=== PATIENT | female | born 1965 | race Caucasian/White ===

== ENCOUNTER 2018-01-06 15:44 | Emergency (ER) | payer BC, SELFPAY ==
[2018-01-06 15:45] VITALS: BP 149/89; PULSE 95; RESP 16; TEMP 36.8; O2SAT 96; BMI 32.5
[2018-01-06 16:34] LABS: Absolute Lymphocyte Count 2.52 X10^3/ul (0.83-4.51); Absolute Neutrophil Count 4.9 X10^3/uL (2.0-7.7); Basophil# 0.05 X10^3/uL; Basophil% 0.6 % (0-1); Eosinophil# 0.23 X10^3/uL; Eosinophils% 2.7 % (0-5); Hematocrit 44.2 % (37-47); Hemoglobin 14.4 g/dl (12.0-15.0); Lymphocyte # 2.52 X10^3/ul (4.0); Lymphocyte % 29.2 % (19-41); Mean Corp Hgb Conc 32.6 g/gl (32-36); Mean Corpuscular Hgb 31.6 pg (27.0-32.0); Mean Corpuscular Volume 96.9 fL (81-99); Mean Platelet Vol. 9.5 fl (6.2-12.0); Monocyte# 0.89 X10^3/uL; Monocyte% 10.3 % (0-10); Neutrophil # 4.93 X10^3/uL (2.7-7.7); Platelet Count 331 K/mm3 (150-450); RBC Distribution Width CV 12.7 % (11.6-14.6); RBC Distribution Width SD 44.1 fl (35.1-43.9); Red Blood Count 4.56 M/mm3 (4.2-5.4); White Blood Count 8.6 K/mm3 (4.4-11.0)
[2018-01-06 16:36] LABS: POSITIVE COUNT NO; POSITIVE DIFFERENTIAL NO; POSITIVE MORPHOLOGY NO
[2018-01-06 16:44] LABS: Anion Gap 7 (5-15); BUN 10 mg/dL (7-18); BUN/Creat Ratio 15.2 RATIO (10-20); Calcium,Total 8.5 mg/dL (8.5-10.1); Chloride 106 mmol/L (98-107); Creatinine, Serum 0.66 mg/dL (0.55-1.02); EST Glomerular Filtration Rate 101 mL/min (>60); Est Glom Filt Rate - Afr Amer 122 mL/min (>60); Estimated Creatinine Clearance 88.06 ml/min; Glucose 113 mg/dL (74-106); Potassium 3.7 mmol/L (3.5-5.1); Sodium Level 140 mmol/L (136-145)
[2018-01-06 16:48] LABS: Pregnancy, Serum, hCG Quali. NEGATIVE Negative (0-9 Nonpreg)
[2018-01-06 16:51] LABS: Amphetamine Urine VISTA NEGATIVE (<1000 ng/mL); Barbiturate Urine VISTA NEGATIVE (< 200 ng/mL); Benzodiazepine Urine VISTA NEGATIVE (< 200 ng/mL); Cocaine Urine VISTA NEGATIVE (< 300 ng/mL); Ecstacy Urine VISTA NEGATIVE (< 500 ng/mL); Methadone Urine VISTA NEGATIVE (< 300 ng/mL); PCP Urine VISTA NEGATIVE (< 25 ng/mL); THC Urine VISTA NEGATIVE (< 50 ng/mL); Vista UDS pH Range 6
--- NOTE | 2018-01-06 17:39 | NURSING ---
ELINOR, CRISIS, HERE
--- NOTE | 2018-01-06 20:02 | DCINST.ED_ITS ---
ED Disposition - Plan for ED Patient: Disposition: Home or Assisted Living Chief Complaint: Suicidal Instructions: ED Depression Referrals: Behavioral,Health [facility] [GROUP OF PHYSICIANS] - As soon as possible
--- NOTE | 2018-01-06 20:02 | ED.VISSUMM ---
- ER Visit Summary Date of Service: 01/06/18 Chief Complaint: Suicidal ideation History of Present Illness: The patient is a 52 F reports increasing depression. She has been having her medications adjusted as an outpatient without significant improvement in her symptoms. She states that she thought about taking Klonopin to end it all. The patient later states that she does not want to actually that once the depression to and by taking Klonopin. Patient has had one prior suicide attempt in the past where she attempted hanging. She was last hospitalized 3 or 4 years ago. She follows with a psychiatrist in [place] but after much questioning patient and family it appears she was sent to [facility] to be evaluated for the behavioral health program. Physical Examination: Vital signs are unremarkable. Patient's lying in bed no acute distress. She is intermittently tearful. Head neck examination is unremarkable. Heart is regular rate and rhythm. Lung sounds are clear. Abdomen is soft nontender. Skin examination was no cutting lr, rashes or lesions. Psychiatric evaluation does reveal normal speech pattern. She does admit to suicidal thoughts but states but not to . Test Results: BC and chemistry studies are unremarkable. test negative. Tox screen normal. EtOH unremarkable. Emergency Department Course and Treatment: Katia from the counseling center spoke with the patient and . After much questioning it was weeded out that she was sent here to be started in the behavioral health program. They are not available this evening to speak with her. Referral be made from Katia. She is able to contract for safety. Treatment Plan: [] Disposition: Discharge Impression: Depression This note was generated with [employer] dictation software. It may contain incorrect words, spelling, and punctuation that were not noted in review of the chart prior to signing ED Disposition - Plan for ED Patient: Disposition: Home or Assisted Living Chief Complaint: Suicidal Instructions: ED Depression Referrals: Behavioral,Health [facility] [GROUP OF PHYSICIANS] - As soon as possible
--- NOTE | 2018-01-06 20:02 | ED.DEP ---
ED Disposition - Plan for ED Patient: Disposition: Home or Assisted Living Chief Complaint: Suicidal Instructions: ED Depression Referrals: Behavioral,Health [facility] [GROUP OF PHYSICIANS] - As soon as possible
[2018-01-06 20:13] VITALS: BP 123/82; PULSE 84; RESP 16; O2SAT 96
== END 2018-01-06 20:17 | disposition home or self-care (01) ==
PROVIDERS: Emergency Provider Emergency Medicine
DX: F32.9 Major depressive disorder, single episode, unspecified (principal); Z72.0 Tobacco use; Z79.899 Other long term (current) drug therapy
CPT/HCPCS: 36415; 80048; 80307; 80320; 84703; 85025; 99283; G0480

== ENCOUNTER 2018-01-08 09:00 | Outpatient (RCR) | payer BC, SELFPAY ==
--- NOTE | 2018-01-08 12:00 | PCM.HP.BLA ---
History and Physical Patient is a 52 year old female who presents to the [facility] with chief complaint of I had a break. History is been obtained per interview with patient, discussion with staff and review of chart. Records reviewed including the crisis assessment note by Katia Hall from 01/06/18 [facility] emergency department. Case discussed with treatment team. Chief complaint-depression, anxiety, alcohol use History of present illness Patient is a 52-year-old female who was referred to the [facility] by primary outpatient psychiatrist Dr. Porras and also by [facility] emergency department after a crisis assessment on January 06, 2018. 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 She reports that on January 04 I broke she had a panic attack followed by crying episode lasting 20-30 minutes after arriving to work in the morning. Her colleague was supportive-my cohort held me. She states that she then went numb and left work via transportation by her . Symptoms have likely been exacerbated by alcohol consumption and consequences of gambling. She reports drinking 2-3 alcoholic drinks per day over the past year and up to 12 drinks on the weekends. She been gambling over the past 2 years lost $20,000 within the past year. Her has enabled the gambling by accompanying her to the [employer]. She attributes her gambling to Abilify which she discontinued 1 month ago. She states that she also stopped gambling at the time she discontinued the Abilify. She endorses a depressed mood in which she feels self-critical and dark with and had Catrachita, decreased energy and difficulty concentrating. She has passive thoughts of stating I would not mind if I got in a car accident. She denies suicide plan or intent. Per crisis evaluation note on January 06 she reported that she wanted to overdose on Klonopin in order to make the depression and anxiety go away. She currently feels able to maintain safety. She denies access to firearms. She states that her does have a stock pile of Klonopin to which she has access. She is willing to discuss securing the Klonopin with her for safety. She denies homicidal thoughts. She reports vague perceptual disturbances of shadows or movements in the corner of her eye over the past month. She denies history consistent with a discrete episode of lani. She reports that occasionally she and her would stay up all night drinking and gambling but denies other symptoms suggestive of lani during these episodes. She has ruminative anxiety about multiple issues. She reports panic attacks in which she feels heart palpitations shortness of breath and severe anxiety. She has some obsessive-compulsive behaviors including checking and counting. She does not feel that these interfere with general functioning. She generally sleeps from 7 PM to 5 AM. She reports that overall her sleep has been stable. Her appetite is been variable. She denies eating disorder. She reports history of traumas including the of her parents, the of her 's sister, and elective at age 17, and the 2010 temporary guardianship of a 13-year-old teenage boy which she and her voluntarily gave up. Past psychiatric history Patient reports previous diagnosis of depression and anxiety. She has had 1 previous inpatient psychiatric hospitalization. In 2013 she was hospitalized at [facility] with suicidal ideation. She reports a weak attempt to hang herself of a doorknob. She participated in IOP for 8 weeks at [facility]. 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 She currently sees Dr. Porras and has a therapist Jolene. She was on Klonopin twice daily for 3 years and then was off it for 1 year. She recently restarted the Klonopin on Thursday. She reports that she was on Abilify for 2 years which she feels caused her to altman. She tried Latuda for 3 weeks but felt it was bringing me down. Substance use history Patient reports daily alcohol consumption over the past year. She drinks 12 beers on the weekend. She drinks 2-3 beers on weekdays. She stopped drinking Thursday through Thursday per Dr. Porras's request as she started Klonopin 0.5 mg twice daily on Thursday. She reports however yesterday she had 2 beers last night in spite of taking Klonopin. It is noted that her lab work from emergency department visit Thursday, January 06, is inconsistent with her provided history as urine tox screen is negative for benzodiazepines and shows alcohol level of 14. She denies history of alcohol withdrawal seizures or DTs. She started smoking 2 years ago and currently smokes one half pack of cigarettes daily. She denies illicit drug use. Past medical history Patient denies significant history. Denies seizure or head injury. EAB 1 (age 17) Review of systems No fevers chills nausea vomiting chest pain dyspnea. All other systems reviewed and negative Allergies-codeine causes vomiting Current medications Cymbalta 60 mg daily Klonopin 0.5 mg p.o. twice daily which she started on Thursday BuSpar 15 mg p.o. twice daily Propranolol 10 mg p.o. twice daily Vitamin D3 Family medical psychiatric history Father-questionable undiagnosed bipolar disorder Mother-addicted to pain medications Brother-in therapy for diagnosis unknown Nephew-depression Developmental social history Patient was born and raised in [place]. She is the youngest of 3 children. She is to older brothers. Her parents when she was 14. She lived with her mother. Her older brothers lived with her father. Her father built a multimillion dollar [employer] business. She denies abuse she states they did the best they could. She obtained a masters in education from [employer]. 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 She has been for 27 years and describes the marriage is good. Her has been on disability for 7 years for depression. They have 2 children. Oldest child age 24 is FTM (see Jolene/toshia) and lives in [facility] and is obtaining a PhD. Younger child age 21 Carina is obtaining a degree at [employer]. She and her live in [place]. Legal history none Mental status exam Vitals reviewed per nursing database and discussed with nursing. Alert and oriented. No acute distress. Ambulatory with normal gait and station. Casually dressed and groomed. Appropriate hygiene. Cooperative with interview. Good eye contact. No psychomotor agitation or retardation. Mood depressed. Affect congruent. Speech is clear and of regular rate and volume. Language fluent. Thought process organized. Associations logical. Thought content significant for ruminative anxiety and themes of depression. Passive suicidal ideation / thoughts of . No suicide plan or intent. Feels able to maintain safety. No homicidal ideation related to her detected. No evidence of psychosis related to her detected. Immediate recent and remote memory grossly intact. Attention and concentration are fair. Estimated intelligence fund of knowledge average. Judgment and insight are limited to fair. Labs and testing Lab work reviewed from [facility] emergency department January 06 2018.. BMP unremarkable. negative. Tox screen negative including negative for benzodiazepines. This is not consistent with patient's history as she was taking Klonopin as prescribed by Dr. Porras since January 04. Serum alcohol 14. Requisition provided to patient for liver function tests, TSH, serum alcohol and urine tox. Diagnosis Major depressive disorder recurrent fear F 33.2 Anxiety unspecified Rule out PTSD Alcohol use disorder moderate Nicotine use disorder Cluster B traits Plan Admit to [facility] as the structured setting is necessary to prevent decompensation and hospitalization. Risks benefits alternatives of medications discussed with patient. Patient acknowledges understanding. Continue Cymbalta 60 mg daily. Continue BuSpar 15 mg twice daily. Continue propranolol 10 mg twice daily. Discontinue Klonopin 0.5 mg twice daily as patient has continued to consume alcohol with the Klonopin. Discussed risk of alcohol withdrawal. Patient denies history of alcohol withdrawal and states that she has been able to refrain from alcohol some days without withdrawal symptoms. Start Campral 333 mg p.o. 3 times daily to be increased to 666 mg p.o. 3 times daily next week. Encouoraged participation in AA. Encouraged ongoing gambling cessation. Encouraged nicotine and smoking cessation. She agrees to discuss securing medications with her . Up with Dr. Porras and therapist Jolene. Lab requisition has been provided for lab work. Patient acknowledges understanding and is in agreement with plan. She feels able to maintain safety. She agrees to seek help or emergency care feeling unsafe to self or others.
--- NOTE | 2018-01-08 12:35 | HP.PCM_ITS ---
History and Physical Patient is a 52 year old female who presents to the [facility] with chief complaint of I had a break. History is been obtained per interview with patient, discussion with staff and review of chart. Records reviewed including the crisis assessment note by Katia Hall from 01/06/18 [facility] emergency department. Case discussed with treatment team. Chief complaint-depression, anxiety, alcohol use History of present illness Patient is a 52-year-old female who was referred to the [facility] medicine [facility] by primary outpatient psychiatrist Dr. Porras and also by [facility] emergency department after a crisis assessment on January 06, 2018. 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 She reports that on January 04 I broke she had a panic attack followed by crying episode lasting 20-30 minutes after arriving to work in the morning. Her colleague was supportive-my cohort held me. She states that she then went numb and left work via transportation by her . Symptoms have likely been exacerbated by alcohol consumption and consequences of gambling. She reports drinking 2-3 alcoholic drinks per day over the past year and up to 12 drinks on the weekends. She been gambling over the past 2 years lost $20,000 within the past year. Her has enabled the gambling by accompanying her to the [employer]. She attributes her gambling to Abilify which she discontinued 1 month ago. She states that she also stopped gambling at the time she discontinued the Abilify. She endorses a depressed mood in which she feels self-critical and dark with and had Catrachita, decreased energy and difficulty concentrating. She has passive thoughts of stating I would not mind if I got in a car accident. She denies suicide plan or intent. Per crisis evaluation note on January 06 she reported that she wanted to overdose on Klonopin in order to make the depression and anxiety go away. She currently feels able to maintain safety. She denies access to firearms. She states that her does have a stock pile of Klonopin to which she has access. She is willing to discuss securing the Klonopin with her for safety. She denies homicidal thoughts. She reports vague perceptual disturbances of shadows or movements in the corner of her eye over the past month. She denies history consistent with a discrete episode of lani. She reports that occasionally she and her would stay up all night drinking and gambling but denies other symptoms suggestive of lani during these episodes. She has ruminative anxiety about multiple issues. She reports panic attacks in which she feels heart palpitations shortness of breath and severe anxiety. She has some obsessive- compulsive behaviors including checking and counting. She does not feel that these interfere with general functioning. She generally sleeps from 7 PM to 5 AM. She reports that overall her sleep has been stable. Her appetite is been variable. She denies eating disorder. She reports history of traumas including the of her parents, the of her 's sister, and elective at age 17, and the 2010 temporary guardianship of a 13-year- old teenage boy which she and her voluntarily gave up. Past psychiatric history Patient reports previous diagnosis of depression and anxiety. She has had 1 previous inpatient psychiatric hospitalization. In 2013 she was hospitalized at [facility] with suicidal ideation. She reports a weak attempt to hang herself of a doorknob. She participated in IOP for 8 weeks at [facility]. 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 She currently sees Dr. Porras and has a therapist Jolene. She was on Klonopin twice daily for 3 years and then was off it for 1 year. She recently restarted the Klonopin on Thursday. She reports that she was on Abilify for 2 years which she feels caused her to altman. She tried Latuda for 3 weeks but felt it was bringing me down. Substance use history Patient reports daily alcohol consumption over the past year. She drinks 12 beers on the weekend. She drinks 2-3 beers on weekdays. She stopped drinking Thursday through Thursday per Dr. Porras's request as she started Klonopin 0.5 mg twice daily on Thursday. She reports however yesterday she had 2 beers last night in spite of taking Klonopin. It is noted that her lab work from emergency department visit Thursday, January 06, is inconsistent with her provided history as urine tox screen is negative for benzodiazepines and shows alcohol level of 14. She denies history of alcohol withdrawal seizures or DTs. She started smoking 2 years ago and currently smokes one half pack of cigarettes daily. She denies illicit drug use. Past medical history Patient denies significant history. Denies seizure or head injury. EAB 1 (age 17) Review of systems No fevers chills nausea vomiting chest pain dyspnea. All other systems reviewed and negative Allergies-codeine causes vomiting Current medications Cymbalta 60 mg daily Klonopin 0.5 mg p.o. twice daily which she started on Thursday BuSpar 15 mg p.o. twice daily Propranolol 10 mg p.o. twice daily Vitamin D3 Family medical psychiatric history Father-questionable undiagnosed bipolar disorder Mother-addicted to pain medications Brother-in therapy for diagnosis unknown Nephew-depression Developmental social history Patient was born and raised in [place]. She is the youngest of 3 children. She is to older brothers. Her parents when she was 14. She lived with her mother. Her older brothers lived with her father. Her father built a multimillion dollar [employer] business. She denies abuse she states they did the best they could. She obtained a masters in education from [employer]. 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 She has been for 27 years and describes the marriage is good. Her has been on disability for 7 years for depression. They have 2 children. Oldest child age 24 is FTM (see Jolene/toshia) and lives in [facility] and is obtaining a PhD. Younger child age 21 Carina is obtaining a degree at [employer]. She and her live in [place]. Legal history none Mental status exam Vitals reviewed per nursing database and discussed with nursing. Alert and oriented. No acute distress. Ambulatory with normal gait and station. Casually dressed and groomed. Appropriate hygiene. Cooperative with interview. Good eye contact. No psychomotor agitation or retardation. Mood depressed. Affect congruent. Speech is clear and of regular rate and volume. Language fluent. Thought process organized. Associations logical. Thought content significant for ruminative anxiety and themes of depression. Passive suicidal ideation / thoughts of . No suicide plan or intent. Feels able to maintain safety. No homicidal ideation related to her detected. No evidence of psychosis related to her detected. Immediate recent and remote memory grossly intact. Attention and concentration are fair. Estimated intelligence fund of knowledge average. Judgment and insight are limited to fair. Labs and testing Lab work reviewed from [facility] emergency department January 06 2018.. BMP unremarkable. negative. Tox screen negative including negative for benzodiazepines. This is not consistent with patient's history as she was taking Klonopin as prescribed by Dr. Porras since January 04. Serum alcohol 14. Requisition provided to patient for liver function tests, TSH, serum alcohol and urine tox. Diagnosis Major depressive disorder recurrent fear F 33.2 Anxiety unspecified Rule out PTSD Alcohol use disorder moderate Nicotine use disorder Cluster B traits Plan Admit to [facility] as the structured setting is necessary to prevent decompensation and hospitalization. Risks benefits alternatives of medications discussed with patient. Patient acknowledges understanding. Continue Cymbalta 60 mg daily. Continue BuSpar 15 mg twice daily. Continue propranolol 10 mg twice daily. Discontinue Klonopin 0.5 mg twice daily as patient has continued to consume alcohol with the Klonopin. Discussed risk of alcohol withdrawal. Patient denies history of alcohol withdrawal and states that she has been able to refrain from alcohol some days without withdrawal symptoms. Start Campral 333 mg p.o. 3 times daily to be increased to 666 mg p.o. 3 times daily next week. Encouoraged participation in AA. Encouraged ongoing gambling cessation. Encouraged nicotine and smoking cessation. She agrees to discuss securing medications with her . Up with Dr. Porras and therapist Jolene. Lab requisition has been provided for lab work. Patient acknowledges understanding and is in agreement with plan. She feels able to maintain safety. She agrees to seek help or emergency care feeling unsafe to self or others.
--- NOTE | 2018-01-08 12:36 | BH.DR.ITP ---
Initial Treatment Plan - Patient Information Visit Information: ADMISSION DATE: EXPECTED LOS: 4-6 weeks Diagnoses:: Major depressive disorder F 33.2 - Problems/Symptoms Problem #1:: Depression Symptom:: Sad mood, anhedonia, decreased energy, passive suicidal ideation, biologic disruption of appetite Problem #2:: Anxiety Symptom:: Rumination, panic Problem #3:: Alcohol use
--- NOTE | 2018-01-08 12:38 | PCM.PN.BLA ---
Progress Note Physical exam: Vital signs per nursing database. Patient is alert and oriented in no acute distress. Head is normocephalic and atraumatic. Extraocular movements are intact. Mucous memories are moist. Throat without erythema. Neck supple. Full range of motion. Heart has a regular rate and rhythm. Lungs clear. Breath sounds equal. Abdomen with bowel sounds present. Spontaneous motion of extremities. Distal pulses intact. Ambulatory with normal gait and station.
--- NOTE | 2018-01-08 14:52 | BH.NA_ITS ---
Physical Data - Vital Signs Pulse Rate: 70 Respiratory Rate: 14 Blood Pressure: 109/74 - Height/Weight Height: 1.63 m Weight:: 86.183 kg Weight in Pounds: 190.0 lbs Current Medication Compliance - Medication Compliance Do you take your medication as prescribed?: Yes Do you need assistance with taking medication?: No Have you had side effects from medication?: Yes - Abilify-wt gain and increased impulsiveness, Latuda-exacerbated depression Nutritional History - Appetite Nutritional Instructions:: If client shows signs of a swallowing problem, weight change of 10 pounds or more in the last month, or is on a diabetic diet, the physician will review and request a dietitian consult, as appropriate. All unintentional weight loss will be referred to the physician for decision on need for dietitian consult. Describe your appetite:: Fair Have you noticed a change in your eating habits lately?: Yes - appetite has decreased as depressive symptoms have increased Additional nutritional information:: >1 serving of caffiene daily Functional Assessment - Sleep Pattern Describe any problems with sleeping: Difficulty staying asleep r/t rumination. - Activities Motor Activity:: Functional Sensory/Communication Assess - Hearing Problems Do you have any hearing problems?: Adequate - Communication Problems Do you have difficulty understanding what people are saying?: No Do you have trouble putting your thoughts into words or expressing what you want to say?: No Do people ever have trouble understanding what you say?: No What is your primary language?: Faroese Learning Assessment - Education What is your level of education?: Master Degree - Learning Barriers Learning Barriers:: Ready to learn Medical Problems/History - Pain Assessment Do you have acute or chronic pain?: No - Female Reproductive Do you think you may be ?: No Number of pregnancies:: 3 Number of children:: 2 Have you reached menopause?: No Do you have any history of breast disease?: No :: 1 - EAB Mental Status Summary - Mental Status Significant Findings/Observations on Appearance and Mood:: Client is A&Ox4 and cooperative with interview. She has appropriate hygiene and grooming, and is casuallly dressed. She makes good eye contact. Speech is clear and of normal rate and volume. Mild depression and anxiety, affect is mood congruent. Normal process and logical associations. No symptoms of delusions. Client denies hallucinations and HI. She denies SI, but does note that she has passive thoughts of . Suicide Assessment - Suicidal Ideation Are you currently or have you been suicidal in the past?: Yes Suicidal Intentional Rating Scale (SIRS): Suicidal thoughts (past) Physician Notification: If Active suicidal thoughts/Will not contract for safety is checked, contact physician and document in the Physician Notification section below. Past Psychiatric History - MH Treatment Hx Past Psychiatric Medications:: Cymbalta, propranolol, buspar Fall Risk Assessment - Age Age: Less than 60 - Mental Status Mental Status: Willing & able to ask for assistance when needed - Physical Status Physical Status: No problems - Impairments Impairments: None - Elimination Elimination: Continent AND independent - Gait or Balance Gait or Balance: Walks independently - Hx of Falls History of falls in the past 6 months: No known history - Medications/Substances Psychotropics:: Antidepressants Medications/substances used within the past 24 hours or ordered to administer: 1 -2 of the medications/substances listed above - Total Score Total Points:: 1 Physician Notification - Physician Notification Physician Notified: Elizabeth Lanier Method of Notification: Face to Face Comments: treatment plan discussion RN Summary of Impressions - Impressions Recommendations: Include psychiatric and medical issues, treatment planning recommendations, and discharge planning needs. - Level of Care How do the client's current symptoms and functional deficits support need for this level of care?: Client denies current or recent SI, noting the cinder pit worker mistook her stating that she wanted to take several Klonopin to 'dull her symptoms' as SI, when she did not have intention to harm herself. She recognizes that her depression and anxiety have been increasingly poorly controlled for several weeks. She has been unable to work and has been using alcohol to self-medicate daily, drinks much more on weekends. IOP will help encourage gains while preventing further decompensation.
--- NOTE | 2018-01-08 14:54 | BH.SGPN ---
Service Group Progress Note - Session Psychotherapy Session #2 Date Open:: 01/08/18 - 8 group members Time Started:: 10:27 Time Stopped:: 11:20 Targeted Problem #:: 1 Type of Group:: Illness Management Goal of Group:: To increase understanding of resilience and identify the factors that contribute to building resilience. Client Response/Progress/Benefit:: Client responded well to session, active participant. Client connected with the quote sharing, if we refuse to change we will break. Client defined resiliency has bouncing back after experiencing hardships. Client helped the group identify factors of resiliency such as basic needs, live to learn, and self-awareness. Client shared living to learn is important because it can help her move past mistakes and gain new knowledge. Client appeared to connect with the dimensions of resiliency and emotional agility, sharing, it helps me understand myself more. Client seemed to benefit from learning about the factors that contribute to resiliency. Client's first day in PHP, to continue PHP to promote mood stability and prevent decompensation. Eye Contact:: Good Motor Activity:: Appropriate Appearance:: Neat Speech:: Appropriate Mood:: Anxious Affect:: Constricted Thoughts:: Linear, No evidence of hallucinations/delusions noted Staff Interventions:: Therapist led group in an activity that would induce a chaotic environment and used the activity as a tool in discussing the various stressors people are faced with each day. Therapist facilitated group discussion about resilience and explained the factors of building resilience. Therapist led discussion about factors that contribute to resilience. Therapist provided support by using active listening and providing feedback.
--- NOTE | 2018-01-08 16:37 | BH.MDN ---
Multi-Disciplinary Note - Note 45-min Individual Time Started:: 12:27 Date: 01/08/18 Purpose of session/treatment goals addressed:: The purpose of this session was to begin building rapport, as well as assess Client perception of current stressors, symptoms, supports, and means for coping. Another goal was to work with client to assess motivation for change regarding current drinking behaviors as well as begin to establish treatment goals. Eye Contact:: Good Motor Activity:: Appropriate Appearance:: Casual Speech:: Appropriate Mood:: Anxious Affect:: Congruent Thoughts:: Linear, Logical, No evidence of hallucinations/delusions noted Staff Interventions:: Therapist asked open-ended and furthering questions to gather information regarding client current symptoms, stressors, and identified supports. Used active and reflective listening, as well as empathic responses to provide support and normalize Client concerns. Discussed with Client past means for coping and provided psychoeducation regarding how maladaptive coping mechanisms are formed. Utilized HI techniques to determine Client readiness and motivation to change. Began to work with Client on identifying treatment goals. Client Response:: Client open to meeting with this therapist and responded well to content discussed throughout session. She shared feeling somewhat overwhelmed by the amount of information she took in during group as well as her time meeting with the program psychiatrist. She indicated feeling reassured by the support of the staff and fellow clients who reminded her that the first day of something new is often the hardest and most overwhelming because we aren't sure what to expect. Client discussed the cirstumstances leading up to admission and indicated I had a break down at work and they had to take me to the emergency department. 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 Client identified state requirements, parent expectations, and more intense student behavioral problems as biggest stress related concerns. CLient reflected back that she feels she had not been contributing to her share of the work for some time now and found she has been relying increasingly on the other teacher in the classroom. Client further noted previously struggling to manage occupational stress which resulted in hospitalization and client taking time off from work approximately 3 years ago. When asked how she had coped and returned to work at that time Client shared I didn't, I guess I just pushed it all down and pretended that it wasn't bothering me. She went on to add that after meeting with the program nurse and psychiatrist she has become aware of the extent that she has been using alcohol and gambling as her primary coping skills for that past few years. Client revealed that she has been drinking 2-3 drinks daily, often juma mathews and carolin. She shared doing so as a means of relaxing and not having to think about current stressors. Client denies that alcohol use has impeded her ability to function and shared that usually her nighttime drinking causes her to pass out and sleep until work the next day but has not impacted her during working hours. CLient shared not realizing the extent of the drinking as she has been in an environment where this behavior is often normalized. Client went on to discuss that she had also been gambling for the past few years since beginning an Abilify trial, which she believes is the primary cause of the behavior. Client shared that her gambling has resulted in significant debt but that she and her have arranged a payment plan to pay off current debts. CLient indicates her is her largest support. She shared a strong desire to focus primarily on stress management and replacing her unhealthy coping with healthier skills. CLient reviewed with therapist strategies for maintaining sobriety over the weekend and indicates plans to do so. Risks/Concerns:: Client denies any active Suicidal Ideation, plan, or intent as of this date, 01/08/18. She identifies wanting to be able to function normally and no longer struggling with managing her overwhelming stress or feeling like a burden as main sources of motivation. Client indicates plans to maintain sobiety and potentially return to work following completion of IOP program, indicating future orientation. Client indicates an ability to maintain safety of self and others at this time and is aware of local crisis resources available. Client has a history of alcohol misuse and gambling behaviors; however, indicates a willingness to maintain sobriety and address unhealthy means of coping throughout program admission. Client reports drinking dx and has been rx Campral 333 mg p.o. 3 times daily to be increased to 666 mg p.o. 3 times daily to aid with maintaining sobriety. Progress Toward Goals/Plan:: Client first day in IOP program, therefore minimal progress able to be made. Client expressed adjusting well to treatment setting and appeared to be comfortable. Client further disclosed that although this first day in to program had been a lot to take in emotionally, she felt as though she had been able to gain important insights into how her current thoughts and behaviors may be negatively impacting various areas of her life. CLient shared expressed to improve her ability to manage mental health symptoms in order to decrease urges to utilize unhealthy means of coping. Client additionally open to addressing addiction behaviors including alcohol and gambling. Recommended continued PHP to further establish tx goals, continue learning strategies to maintain sobriety, improve emotion regulation, prevent decompensation, and increase use of healthy coping mechanisms. Time Stopped:: 13:16
--- NOTE | 2018-01-11 13:27 | BH.SGPN ---
Service Group Progress Note - Session Psychotherapy Session #2 Date Open:: 01/11/18 - 6 group members Time Started:: 10:18 Time Stopped:: 11:14 Targeted Problem #:: 1 Type of Group:: Illness Management Goal of Group:: To increase understanding of what stress is, identify current life stressors, and connect impact stressors have on mental health. Client Response/Progress/Benefit:: Client responded well to session, engaged in discussion providing good insight. Client appeared to connect with the quote stating, I don?t even know how negative I?m thinking until I feel stuck in the mud. Client shared stress can impact all areas including physical, mental, and emotional. Client appeared to connect with the fact that not all stress is bad, but chronic stress can create numerous issues. Client identified her personal stressors as: school, emotional management, family, and future. Client stated currently her stress is managed through use of self-care and thought challenge. Client reported when her stress is overflowing? she gets angry, turns to alcohol, has panic attacks, and gets somatic symptoms. Client appeared to benefit from gaining awareness of personal stressors, stating ?it?s all starting to make sense, I was in survival mode for so long.? Client to continue PHP to prevent decompensation and increase mood stability. Eye Contact:: Good Motor Activity:: Appropriate Appearance:: Neat Speech:: Appropriate Mood:: Euthymic Affect:: Congruent Thoughts:: Linear, No evidence of hallucinations/delusions noted Staff Interventions:: Therapist facilitated discussion about stress. Therapist facilitated an activity in which group members were asked to identify various stressors they have in their life currently. Therapist instructed group members to indicate if certain stressors were larger than others. Therapist led processing of each member?s stress jar and helped them connect impact the stress has on their mental health. Psychotherapy Session #3 Date Open:: 01/11/18 - 6 group members Time Started:: 11:20 Time Stopped:: 12:16 Targeted Problem #:: 1 Type of Group:: Functional Skills Development Goal of Group:: To identify what stressors clients have control over and what stressors have no control over. Another goal was to increase repertoire of healthy strategies to help manage stress. Client Response/Progress/Benefit:: Client responded well to session, active participant. Client helped the group accomplish an activity the induced stress and promote the use of emotional regulation. Client stated the activity helped her gain awareness ?we can?t tackle all our stressors at once.? Client discussed the importance of putting energy into reducing stressors in her control rather than ruminating of things out of her control. Client's in control stressors included managing emotions and part of her future. Client identified strategies for stress management such as expressing needs to supports, setting small goals, and focusing on one stressor at a time. Client shared the group helped her realize ?I can do this in a healthy way, without drinking and smoking!? Client appeared to benefit from increasing her repertoire of stressing reducing coping skills. Progress noted in client's increased awareness, but can continue to benefit from staying sober. Eye Contact:: Good Motor Activity:: Appropriate Appearance:: Neat Speech:: Appropriate Mood:: Euthymic Affect:: Congruent Thoughts:: Linear, No evidence of hallucinations/delusions noted Staff Interventions:: Therapist facilitated discussion about control versus no control and helped group members connect the concept to stressors. Therapist led discussion about importance of putting forth more energy on those stressors they can control. Therapist facilitated brainstorming of strategies to help manage stress level. Therapist provided support by using active listening and providing feedback.
--- NOTE | 2018-01-11 16:39 | BH.MDN_ITS ---
Multi-Disciplinary Note - Note 45-min Individual Time Started:: 12:30 Date: 01/11/18 Purpose of session/treatment goals addressed:: The purpose of this session was to check-in with Client regarding symptoms and stressors over weekend as well as progress in abstaining from alcohol use. Another goal was to review Client identified motivations for sobriety as well as explore with client potential thoughts or justifications contributing to unhealthy coping behaviors. Introduced and provided homework for client to begin applying thought challenging strategies discussed. Eye Contact:: Good Motor Activity:: Appropriate Appearance:: Casual Speech:: Appropriate Mood:: Euthymic, Anxious Affect:: Full Thoughts:: Linear, Logical, No evidence of hallucinations/delusions noted Staff Interventions:: Therapist used active listening and open-ended questions to explore client's thoughts and adjustment to group setting following completion of her first two days. Elicited information regarding ability to maintain sobriety over weekend, current stressors and symptoms. Therapist used [place] techniques to determine CLient motivations to maintain sobriety. Provided psychoeducation on alcohol use as a negative coping skill and common justifications used to override motivations not to drink. Worked with client to identify her personal justifications and ways to challenge these justifications. Provided client with thought challenge homework to review in next session. Client Response:: Client receptive of meeting for individual session, engaged throughout. She shared struggling with high levels of anxiety over the weekend associated with refraining from alcohol consumption. Client indicates successfully maintaining sobriety; however, found her thoughts frequently returning to reasons why she should be able to drink and struggled to challenge the thoughts as they occurred. Client went on to identify her as a major support for her as he was understanding and encouraged client to achieve her goal. Client discussed ongoing guilt and shame related to the impact her anxiety and use of drinking as a primary coping skill. She discussed feeling as though she has failed herself and her coworkers by taking the remainder of the academic year off. Client struggles with challenging use of negative or self- deprecating talk and appeared to benefit from walking through the evidence against beliefs she is a failure. Client responded well to discussion reviewing her motivations for maintaining sobriety as well as the thoughts and justifications for drinking that may lead client to overlook motivations. Client shared that being a good and mother is her largest motivation, as well as reconnecting with a side of herself she is proud of. Therapist introduced and worked with client to complete an Addiction ?Shit List? is which client is tasked with identifying the justifications she gives herself and consequences on her life. Client and therapist walked through challenging one of the identity justifications and client agreeable to apply thought challenging strategies for the remainder as homework to be reviewed in next session. Risks/Concerns:: Client denies suicidal ideation, plan, or intent as of this date, 01/11/18. She is aware of crisis resources and willing to utilize should she feel unable to maintain safety. CLient is 3 days sober and has a history of alcohol abuse. She reports strong motivation to maintain sobriety and indicates her has been a strong support in client sobriety. She has reviewed withdrawal risks/concerns with program psychiatrist and is aware of dangers of alcohol consumption with current psychiatric medications. Progress Toward Goals/Plan:: Minimal progress to report as this is client's second day in IOP program. CLient appears to be making progress in her willingness to open up to the group and reports high levels of motivation to engage in treatment process. Client current recommendation in to maintain current treatment goals with specific focus on continued promotion of sobriety, the relationship between client use of alcohol and gambling as primary coping skills and current mental health symptoms, develop alternative coping strategies , and maintain stability. Time Stopped:: 13:09
--- NOTE | 2018-01-11 16:42 | BH.MTP_ITS ---
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 Anxiety unspecified. Rule out PTSD. Alcohol use disorder moderate. Nicotine use disorder. Cluster B traits Diagnosis Code(s):: F 33.2 - Estimated LOS Estimated LOS (in weeks):: 1 Problem/Goal #1 - Problem/Goal #1 Stated Goal:: Maintain sobriety and increase awareness of the role that emotions play in substance abuse Description of Barriers: Client has a hx of unhealthy means for coping including drinking, smpking, and gambling behaviors which has caused client some financial distress. Client dealing with various psychosocial stressors including recently leaving her job due to increased panic attacks while at work. She additionally discussed difficulties in managing stress/anxiety, increased rumination and negative thinking, increased alcohol use prior to admission, few supports outside of family Functional Impact: Client reports increased occupational stress, ruminating thoughts, difficulties managing emotions, and unhealthy coping via increased drinking behaviors which have impacted ability to function at baseline. She shared increased difficulties in completing duties of her job due to increase stress and anxiety, ultimately resulted in client experiencing an anxiety attack at work. She shared decreased enjoyment in activities previously enjoyed and increased irritability as well. Client shared increased alcohol consumption as a result of stress and reports relying on alcohol as her main source of stress relief. She denies any substantial impact on daily functioning. Goal Relevant Strengths/Supports: Client is intelligent, caring, empathic, and able to relate well with others, she appears motivated to change and willing to try new things in order to improve ability to reduce drinking, cope with urges and mental health symptoms, as well as learn strategies to better regulate emotions. She reports her family is very supportive and are her biggest sources of motivation. - Objectives Objective #1 Stated Objective: List 10 negative consequences resulting from substance use, 10 motivators to remain sober, and 10 stinking thinking thoughts that could rationalize use. Through group and individual will be able to identify emotions that contributed to use and 2 strategies to implement. Interventions: Provide education on dual diagnosis, cycle of addiction, and self -medication with substances. Discharge Criteria: Pt will have listed 10 negative consequences resulting from substance use, 10 motivators to remain sober, and 10 stinking thinking thoughts that could rationalize use. Also be able to identify emotions that contributed to use and 2 strategies to implement. Target Date: 01/18/18 Review Date: 01/18/18 Problem/Goal #2 - Problem/Goal #2 Stated Goal:: Reduce overall frequency, intensity, and duration of the ruminating thoughts that cause increased anxiety and panic so that daily functioning is not impaired. Description of Barriers: Client has a hx of unhealthy means for coping including drinking, smpking, and gambling behaviors which has caused client some financial distress. Client dealing with various psychosocial stressors including recently leaving her job due to increased panic attacks while at work. She additionally discussed difficulties in managing stress/anxiety, increased rumination and negative thinking, increased alcohol use prior to admission, few supports outside of family. Functional Impact: Client reports increased occupational stress, ruminating thoughts, difficulties managing emotions, and unhealthy coping via increased drinking behaviors which have impacted ability to function at baseline. She shared increased difficulties in completing duties of her job due to increase stress and anxiety, ultimately resulted in client experiencing an anxiety attack at work. She shared decreased enjoyment in activities previously enjoyed and increased irritability as well. Client shared increased alcohol consumption as a result of stress and reports relying on alcohol as her main source of stress relief. She denies any substantial impact on daily functioning. Goal Relevant Strengths/Supports: Client is intelligent, caring, empathic, and able to relate well with others, she appears motivated to change and willing to try new things in order to improve ability to reduce drinking, cope with urges and mental health symptoms, as well as learn strategies to better regulate emotions. She reports her family is very supportive and are her biggest sources of motivation. - Objectives Objective #1 Stated Objective: Client will identify 2-3 anxiety triggers and 2 coping skills to use when feeling anxious. Interventions: Therapist will encourage client to use self-awareness strategies and assist client in developing coping strategies to manage ruminating thoughts. Discharge Criteria: Client will have met this goal when can identify at least 2 triggers and 2 ways to cope with anxieties. Target Date: 01/18/18 Review Date: 01/18/18 Problem/Goal #3 - Problem/Goal #3 Stated Goal:: Client will reduce depressive symptoms, feelings of worthlessness , and anhedonia due to Major Depressive Disorder through Partial Hospitalization Program. Description of Barriers: Client has a hx of unhealthy means for coping including drinking, smpking, and gambling behaviors which has caused client some financial distress. Client dealing with various psychosocial stressors including recently leaving her job due to increased panic attacks while at work. She additionally discussed difficulties in managing stress/anxiety, increased rumination and negative thinking, increased alcohol use prior to admission, few supports outside of family. Functional Impact: Client reports increased occupational stress, ruminating thoughts, difficulties managing emotions, and unhealthy coping via increased drinking behaviors which have impacted ability to function at baseline. She shared increased difficulties in completing duties of her job due to increase stress and anxiety, ultimately resulted in client experiencing an anxiety attack at work. She shared decreased enjoyment in activities previously enjoyed and increased irritability as well. Client shared increased alcohol consumption as a result of stress and reports relying on alcohol as her main source of stress relief. She denies any substantial impact on daily functioning. Goal Relevant Strengths/Supports: Client is intelligent, caring, empathic, and able to relate well with others, she appears motivated to change and willing to try new things in order to improve ability to reduce drinking, cope with urges and mental health symptoms, as well as learn strategies to better regulate emotions. She reports her family is very supportive and are her biggest sources of motivation. - Objectives Objective #1 Stated Objective: Identify at least 2-3 negative self-talk messages used to reinforce feelings of worthlessness and replace thoughts with positive messages. Interventions: Therapist will help client identify distorted, negative beliefs about self and replace with more realistic, affirmative messages. Discharge Criteria: Client will have achieved this goal when can verbalize at least 2 negative self-talk messages and effectively replace those thoughts with affirmative messages. Target Date: 01/18/18 Review Date: 01/18/18
--- NOTE | 2018-01-12 10:54 | BH.SGPN ---
Service Group Progress Note - Session Psychotherapy Session #1 Date Open:: 01/12/18 - 6 group members Time Started:: 09:05 Time Stopped:: 10:15 Targeted Problem #:: 1 Type of Group:: Process Goal of Group:: The goal of today's group was to check-in with client's mood, stressors, and positives, and introduce topic for the day. Client Response/Progress/Benefit:: Client responded well to session, quiet, but participating when prompted. 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 Client shared it was eye-opening, I didn't realize how full my stress jar was, I was constantly in fight or flight. Client reports feeling nervous and hopeful today after sharing her work and insurance stressors with her . Client stated although she still experiences some anxiety, her was supportive and helped client think of solutions. Client shared she is five days sober and reports plan to continue sobriety through a 14-day cleanse challenge client and her IOP therapist developed. Client appeared to benefit from receiving supportive statements and identifying positive ways she is contributing to her treatment process. Client to continue PHP to promote mood stability, sobriety, and healthy coping skills. Eye Contact:: Fair Motor Activity:: Appropriate Appearance:: Neat Speech:: Appropriate Mood:: Euthymic Affect:: Constricted Thoughts:: Linear, No evidence of hallucinations/delusions noted Staff Interventions:: Therapist used open-ended questions to elicit information about client's current stressors and mood state. Therapist was supportive by using active listening and reflection.
--- NOTE | 2018-01-12 13:27 | BH.MDN ---
Multi-Disciplinary Note - Note 45-min Individual Time Started:: 12:30 Date: 01/12/18 Purpose of session/treatment goals addressed:: The purpose of this session was to review CLient homework on challenging thoughts justifying drinking behaviors and process each. Another purpose was to discuss consequences of drinking on her mental and physical health and well-being. Eye Contact:: Good Motor Activity:: Appropriate Appearance:: Neat Speech:: Appropriate Mood:: Anxious Affect:: Full, Congruent Thoughts:: Linear, Logical, No evidence of hallucinations/delusions noted Staff Interventions:: Therapist used open-ended questions to gather information on current symptoms, thoughts, and stressors. Reviewed with Client thought challenging homework and used active listening to gather information regarding client difficulties with challenging justifications for drinking behaviors. Aided client in challenging and identifying alternative responses for each justification used. Provided psychoeducation on mental and physical impacts of alcohol consumption. Facilitated conversation surrounding sober resources and alternative coping mechanisms. Client Response:: Client receptive of meeting, engaged in discussion and positive participant throughout. She shared experiencing significant difficulties with the homework from previous session. Client went on to discuss that when trying to challenge and replace the thoughts justifying her drinking behavior, she found herself believing the justifications. Client provided the example of believing she deserves to reward herself and relax after a long day and that it is normal because all of her coworkers drink as well. Receptive of working with this therapist to challenge and replace each thought, processing factors contributing to each. Able to reframe thought of I deserve to reward myself and relax with I can find other ways to relax and reward myself besides drinking. Client indicated that she could get an iced coffee or go for a drive with her . She disclosed that since maintaining sobriety she has been feeling physically better and inquired as to if the two are connected. Therapist reviewed the common impacts that drinking has on physical and mental health. Client expressed not knowing how significantly her alcohol use had been effecting her. She indicated identifying changes in weight, energy, memory, and irritability levels. Client additionally expressed connecting with the relationship between alcohol and increased levels of depression and anxiety. She expressed that she had begun to realize that all this was doing was numbing her to her stressors and causing the rumination to be worse later. Therapist and Client discussed the importance of having healthy supports she can go to where alcohol is not a temptation and people she feels comfortable turning to when feeling tempted to drink. Client encouraged to identify the sober resources she has at home and through social supports as homework. Risks/Concerns:: Client denies suicidal or homicidal ideation, plan, and intent as of 01/12/18. Client is future oriented and aware of crisis resources available. She expresses her family as motivations to continue making strides in learning to manage mental health sx and maintain sobriety. Continues to report successfully maintaining sobriety since 01/08/18. Progress Toward Goals/Plan:: Client is making steady progress towards treatment goals. She is doing well to internalize treatment concepts and is actively applying skills learned. CLient has limited insight into metal health as she has never had mental health treatment before, however is able to grasp interventions once they are explained and client is walked through them. Client displays difficulties in challenging her thoughts and reports high expectations of self which cause shame and guilt. This will [id number] to be explored and address with client. CLient has successfully been able to maitain sobriety since admissio to IOP and is an active and well engaged group participant. Recommended continued IOP to prevent decompensation, continue to gains in treatent, and decrease symptoms of anxiety and depression. Time Stopped:: 13:15
--- NOTE | 2018-01-13 13:27 | BH.MDN_ITS ---
Multi-Disciplinary Note - Note 45-min Individual Time Started:: 12:30 Date: 01/12/18 Purpose of session/treatment goals addressed:: The purpose of this session was to review CLient homework on challenging thoughts justifying drinking behaviors and process each. Another purpose was to discuss consequences of drinking on her mental and physical health and well-being. Eye Contact:: Good Motor Activity:: Appropriate Appearance:: Neat Speech:: Appropriate Mood:: Anxious Affect:: Full, Congruent Thoughts:: Linear, Logical, No evidence of hallucinations/delusions noted Staff Interventions:: Therapist used open-ended questions to gather information on current symptoms, thoughts, and stressors. Reviewed with Client thought challenging homework and used active listening to gather information regarding client difficulties with challenging justifications for drinking behaviors. Aided client in challenging and identifying alternative responses for each justification used. Provided psychoeducation on mental and physical impacts of alcohol consumption. Facilitated conversation surrounding sober resources and alternative coping mechanisms. Client Response:: Client receptive of meeting, engaged in discussion and positive participant throughout. She shared experiencing significant difficulties with the homework from previous session. Client went on to discuss that when trying to challenge and replace the thoughts justifying her drinking behavior, she found herself believing the justifications. Client provided the example of believing she deserves to reward herself and relax after a long day and that it is normal because all of her coworkers drink as well. Receptive of working with this therapist to challenge and replace each thought, processing factors contributing to each. Able to reframe thought of ?I deserve to reward myself and relax? with ?I can find other ways to relax and reward myself besides drinking?. Client indicated that she could get an iced coffee or go for a drive with her . She disclosed that since maintaining sobriety she has been feeling physically better and inquired as to if the two are connected. Therapist reviewed the common impacts that drinking has on physical and mental health. Client expressed not knowing how significantly her alcohol use had been effecting her. She indicated identifying changes in weight, energy, memory, and irritability levels. Client additionally expressed connecting with the relationship between alcohol and increased levels of depression and anxiety. She expressed that she had begun to realize that all this was doing was numbing her to her stressors and causing the rumination to be worse later. Therapist and Client discussed the importance of having healthy supports she can go to where alcohol is not a temptation and people she feels comfortable turning to when feeling tempted to drink. Client encouraged to identify the sober resources she has at home and through social supports as homework. Risks/Concerns:: Client denies suicidal or homicidal ideation, plan, and intent as of 01/12/18. Client is future oriented and aware of crisis resources available. She expresses her family as motivations to continue making strides in learning to manage mental health sx and maintain sobriety. Continues to report successfully maintaining sobriety since 01/08/18. Progress Toward Goals/Plan:: Client is making steady progress towards treatment goals. She is doing well to internalize treatment concepts and is actively applying skills learned. CLient has limited insight into metal health as she has never had mental health treatment before, however is able to grasp interventions once they are explained and client is walked through them. Client displays difficulties in challenging her thoughts and reports high expectations of self which cause shame and guilt. This will [id number] to be explored and address with client. CLient has successfully been able to maitain sobriety since admissio to IOP and is an active and well engaged group participant. Recommended continued IOP to prevent decompensation, continue to gains in treatent, and decrease symptoms of anxiety and depression. Time Stopped:: 13:15
--- NOTE | 2018-01-13 13:28 | BH.MDN_ITS ---
Multi-Disciplinary Note - Note 45-min Individual Time Started:: 12:30 Date: 01/13/18 Purpose of session/treatment goals addressed:: The purpose of this session was to review CLient homework on identifying sober resources and asking supports if they had recognized signs client mental health was worsening. Another purpose was to discuss warning signs and triggers for mental health and aid Client in identifying masood signs/triggers specific to her. Eye Contact:: Good Appearance:: Neat Speech:: Appropriate Mood:: Anxious, Dysthymic Affect:: Congruent Thoughts:: Linear, Logical, No evidence of hallucinations/delusions noted Staff Interventions:: Therapist asked open-ended and furthering questions to gather Client current symptoms, stressors, and treatment goal progress. Provided psychoeducation regarding what warning signs and triggers are. Assisted Client in identifying symptoms and warning signs personally experienced. Worked with client to discuss the importance of awareness of individual warning signs and triggers so that she may more effectively manage mental health and prevent relapse behaviors. Client Response:: Client receptive of meeting for session and actively engaged in session throughout. She discussed speaking with her , Emil, about the previous session challenge of identifying sober supports. CLient indicated that they had been surprised to discover that neither of them could think of any. Client expressed that this had been a much more difficult task that originally thought but was glad to know they she may need to work on developing a sober support system. 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 CLient shared that it had helped to be able to identify specific people within her field who are able to manage the stress of the job in healthy ways. Client went on to discuss conversations with her and daughter about whether they had noticed any changes in client that had alerted them that her mental health had been suffering. Client shared that they had told her they did notice changes in her behavior and attitude. SHe stated that her had mentioned client's increased drinking behaviors and the need to have a cocktail immediately following work was a huge red flag for him. She discussed that both he and her daughter had noticed client isolating and avoiding phone calls, as well as increased irritability. CLient shared feeling conflicted about this as she wishes they had spoke up at the time but that she also understands that they may have not known what to say and that she may not have wanted to hear it. CLient worked with therapist to identify additional warning signs that her mental health is decompensating. Client identified feeling overwhelmed and unable to focus, increased panic and rumination, avoidance, thoughts of i can' t do this anymore, and urges to go to the casino or nuumb herself with alcohol. CLient had difficulty in identifying specific triggers, thought did well to identify triggers leadig up to most recent break down in which client was admitted to IOP program. She discussed that taking on too much at work and lack of self care were the major driving forces. Client and therapist discussed the idea of writing a letter to her future self to remind her of the work she is doing now on her mental health and encouraging her to continue mmaking on effort to care for herself as well. Risks/Concerns:: Client denies suicidal or homicidal ideation, plan, and intent as of 01/13/18. Client is future oriented and aware of crisis resources available. She expresses her family as motivations to continue making strides in learning to manage mental health sx and maintain sobriety. Continues to report successfully maintaining sobriety since 01/08/18. Progress Toward Goals/Plan:: Client continues to make steady progress towards treatment goals. She is able to identify warning signs and triggers for worsening mental health sx that my tempt her to relapse on drinking. CLient continues to work on developing healthy means for coping and better managing stressors as they occur, however struggles somewhat in this area. Client recommended continued PHP to continue to focus on mantaining stability and sobriety as works to further develop healthy coping mechanisms. Time Stopped:: 13:09
--- NOTE | 2018-01-13 15:05 | BH.SGPN_ITS ---
Service Group Progress Note - Session Psychotherapy Session #1 Date Open:: 01/13/18 Time Started:: 09:08 Time Stopped:: 10:09 Targeted Problem #:: 1 Type of Group:: Process - 7 participants Goal of Group:: The goal of group was to check-in with clients on current mood, stressors, and positives and from previous group session. Client Response/Progress/Benefit:: Client responded well to session and was a positive participant. She appeared to benefit from listening to others discuss their own treatment progress with the group and expressed feeling encouraged by knowing she is not alone in working to better manage her mental health symptoms. CLient disclosed to the group this is hardwork as she reflected on her time in the PHP program thus far. She went on to indicate I love it, but it 's hard work. and shared feeling as though she is growing stronger in her confidence in herself. Client shared making progress in her ability to apply some the skills she has already learned. Client proudly announced successfully driving to today's session with her and not experiencing any anxiety about doing so. She indicated that a week ago she would have never been able to do so and attributes this to having the support of the group environment as well as encouragement from her . Client recommended continued PHP to maintain sobriety and further develop insight and awareness into drinking behaviors/consequences as well as healthy stress management and emotion regulation skills for preventing relapse. Eye Contact:: Good Motor Activity:: Appropriate Appearance:: Casual Speech:: Appropriate Mood:: Euthymic Affect:: Congruent Thoughts:: Linear, Logical, No evidence of hallucinations/delusions noted Staff Interventions:: Therapist used open-ended questions to elicit information about client's current stressors and mood state. Therapist was supportive by using active listening and reflection. Therapist utilized a quote to introduce the topic of the day.
--- NOTE | 2018-01-13 15:28 | BH.SGPN_ITS ---
Service Group Progress Note - Session Psychotherapy Session #2 Date Open:: 01/13/18 Time Started:: 10:20 Time Stopped:: 11:10 Type of Group:: Illness Management - 9 group members Goal of Group:: To increase understanding of fear and explore the negative impact fear of failure can have on mental health and decision making. Client Response/Progress/Benefit:: Pt was an active participant in group activity and discussion. Participated with group in discussion on definitions of failure. Pt had definition of failure is going backwards and letting people down. Shared how failure relates to her stating ?I see failure as a reflection of me, which makes me think I'm not worth it. James worked with the group during activity and processed the activity with group pointing out how learning from setbacks, missteps, and failures during the activity helped them accomplish their goals. Shared the top 3 things that she was able to take from the group which were; sideways is moving, reflect on my success, and make my own definition of failure . Progress noted through increased awareness and education on how fear of failure impacts mental wellness. Able to identify that avoiding fear altogether is unrealistic. Also able to identify how failure can be beneficial. Eye Contact:: Fair Motor Activity:: Appropriate Appearance:: Casual Speech:: Appropriate Mood:: Anxious Affect:: Congruent Thoughts:: Linear, Logical, No evidence of hallucinations/delusions noted Staff Interventions:: Therapist facilitated discussion about fear and impact fear of failure can have. Therapist led group in an experiential activity in which client?s would fail numerous times throughout, but were given the opportunity to try again. Therapist led the processing of the activity and assisted clients with connecting how fear of failure impacted their decision making during the activity. Psychotherapy Session #3 Date Open:: 01/13/18 Time Started:: 10:20 Time Stopped:: 11:10 Type of Group:: Functional Skills Development - 9 group members Goal of Group:: To identify the impact fear of failure has had on the group members lives and identify strategies to overcome fear of failure. Client Response/Progress/Benefit:: Active participant in group discussion and activity. Completed worksheet regarding how failure has impacted them, what they gained from the group topic, and how they plan to use topics discussed today in daily life. Shared in small group that she learned today that Sometimes I am my biggest obstacle. Stated that she plans to redefine failure , develop positive talk, remiond self of past success, understand some setbacks are out of my control, and set realistic goals. Progress noted AEB increased education and awareness. Will continue in IOP to maintain gains and prevent further decompensation. Eye Contact:: Fair Motor Activity:: Appropriate Appearance:: Casual Speech:: Appropriate Mood:: Anxious Affect:: Congruent Thoughts:: Linear, Logical, No evidence of hallucinations/delusions noted Staff Interventions:: Therapist provided each group member with a worksheet to complete that asked questions about their experiences with fear of failure. Therapist led the processing of the worksheet, helping client?s connect how fear of failure has impacted them. Therapist provided support by using active listening and providing feedback.
--- NOTE | 2018-01-14 08:34 | BH.MDN ---
Multi-Disciplinary Note - Note 45-min Individual Time Started:: 12:31 Date: 01/14/18 Purpose of session/treatment goals addressed:: The purpose of this session was to assess client current symptom management and treatment goal progress. Another purpose was to discuss alterative coping skills and risk management strategies to place in Coping tool kit that client may use when overwhelmed or facing difficult emotions. Begin planning for client step-down to PHP level of care. Eye Contact:: Good Motor Activity:: Appropriate Appearance:: Casual Speech:: Appropriate Mood:: Euthymic Affect:: Congruent Thoughts:: Linear, Logical, No evidence of hallucinations/delusions noted Staff Interventions:: Therapist used open ended questions to elicit client's thoughts about treatment progress and stepping down to IOP level of care. Therapist used strengths-based approach to review with client progress thus far. Worked collaboratively with client to identify strategies that can help client maintain success while stepping down to IOP level of care. Therapist introduced the concept of a Coping toolkit and aided Client in identifying adame components of the kit to include in order to best help client achieve success. Client Response:: Client responded weill to session and remained engaged throughout. She shared the letter to her future self that she had been prompted to write in previous session. Client discussed wanting to not only remind herself of the positive progress she is making, but also of her motivations not to drink and all the negative consequences she may be likely to overlook or forget in the future. Client shared that writing this had been muuch more difficult than she had expected as it had required her to confront of the unhealthy and potentially harmful effects her behaviors were having on both herself and those around her. Client and therapist discussed the importance of confronting and processing those emotions in order to better avoid similar patterns of behavior in the future. Client and therapist discussed CLient's progress throughout her admission in [facility] and client's opinion on stepping down to a less intensive IOP level of care. CLient indicated being apprehensive and unsure of if she will be able to sustain her progress, but willing to give it a try. Therapist reviewed with client the skills she has been ustilizing so far in order to maintain sobriety and manage mental health symptoms that have led to drinking behaviors. Client and therapist discussed creating a Coping Tool Kit to help Client remember to use healthy coping skills. Client indicated being unsure of what she could place in such a toolkit and therapist discussed the importance of a variety of options for various potential stressors. Client identified wanting to include her shit list, reminder of 5-10 motivations not to drink, letter to her future self, and physical objects to use as calming aides or to remind her to utilize mindfulness techniques. Client agree to take time tonight to think about and complete this kit in prep for transitioning to [facility] level of care. Risks/Concerns:: No risks or concerns at this time. Client denies suicidal ideation, plan or intention to date, 01/14/18. Continued sobriety per client report since 01/08/18. Progress Toward Goals/Plan:: Client continues to make significant strides in treatment. She is actively engaged in both the individual and group components of the program. CLient has made noteable efforts to avctively think about and apply the skills she is learning in group and has successfully maintained sobriety since admitting to the program. CLient reports decreased levels of anxiety and depression and indicates beginning to feel more confident in identifying and challenging distorted thinking patterns. CLient has met treatment goals and given levels of progress is to discharge from [facility] level of care tomorrow and begin the IOP program. Time Stopped:: :19
--- NOTE | 2018-01-14 10:27 | BH.SGPN ---
Service Group Progress Note - Session Psychotherapy Session #1 Date Open:: 01/14/18 - 7 group members Time Started:: 09:05 Time Stopped:: 10:05 Targeted Problem #:: 1 Type of Group:: Process Goal of Group:: The goal of today's group was to check-in with client's mood, stressors, and positives, and introduce topic for the day. Client Response/Progress/Benefit:: Client responded well to session, active participant. Client reports feeling calm today after reflecting on how much better she feels since leaving work. Client stated she used to get physically sick before work every morning which contributed to her stress, feeling of burnout, and increased negative coping. Client shared she met with her individual therapist yesterday and discussed my identity. 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 Client was receptive to feedback and processing with therapist on ways to increase acceptance of role changes. Client reported she is 7 days sober and it feels great. Client reports plan to stop at a store on the way home and reward herself. Client appeared to benefit from reflecting on personal gains and identifying strategies to overcome role changes. Client to continue PHP to prevent decompensation and promote mood stability. Eye Contact:: Good Motor Activity:: Appropriate Appearance:: Neat Speech:: Appropriate Mood:: Euthymic Affect:: Congruent Thoughts:: Linear, No evidence of hallucinations/delusions noted Staff Interventions:: Therapist used open-ended questions to elicit information about client's current stressors and mood state. Therapist was supportive by using active listening and reflection.
--- NOTE | 2018-01-14 15:39 | BH.SGPN ---
Service Group Progress Note - Session Psychotherapy Session #2 Date Open:: 01/14/18 Time Started:: 10:18 Time Stopped:: 11:15 Targeted Problem #:: 1 Type of Group:: Illness Management Goal of Group:: The goal of group was to increase understanding of goals and goal setting and practice a method of goal setting. Client Response/Progress/Benefit:: Pt contributed positively to discussion and listened attentively to peers. Pt reported when she doesn't reach her goals it's typically because she set them too high. Pt reported she needs to focus on establishing goals that are realistic. When processing activity pt reported it's helpful to know restarting or reframing her goals is okay, instead of looking at it as a failure. Pt seemed to benefit from learning about SMART goals as well as rehearsing setting small goals. Eye Contact:: Good Motor Activity:: Appropriate Appearance:: Neat Speech:: Appropriate Mood:: Euthymic Affect:: Congruent Thoughts:: Linear, Logical, No evidence of hallucinations/delusions noted Staff Interventions:: Therapist facilitated group discussion about goals and goal setting. Therapist taught group the acronym SMART (Specific, Measurable, Achievable, Realistic, Timely) as a tool to help with goal setting. Therapist led the group in an activity to be used as a method of practicing goal setting. Therapist guided the group through the SMART acronym as group was participating in activity. Therapist assisted group members with connecting the importance of making small, realistic goals. Psychotherapy Session #3 Date Open:: 01/14/18 Time Started:: 11:25 Time Stopped:: 12:15 Targeted Problem #:: 1 Type of Group:: Functional Skills Development Goal of Group:: The goal of group was to identify a goal for the weekend, explore the potential barriers to achieving that set goal, and identify strategies to overcome barriers. Client Response/Progress/Benefit:: Pt active and engaged throughout group session. Pt identified her goal is to read the bible at least 3 times throughout the week for 15 minutes. Pt reported the benefit of this goal is to reduce stress, improve relationships, and increase hope. Pt reported obstacles to this goal include: time and excuses. Pt identified solutions to these obstacles to include: doing goal in the morning and reviewing the benefits of why she wants to complete the goal. Pt reported her will be support person to encourage her to complete the goal. Pt seemed to benefit from identifying a small SMART goal that could benefit her mental health. Eye Contact:: Good Motor Activity:: Appropriate Appearance:: Neat Speech:: Appropriate Mood:: Euthymic Affect:: Congruent Thoughts:: Linear, Logical, No evidence of hallucinations/delusions noted Staff Interventions:: Therapist facilitated group activity in which group members identified a goal to work on over the next week. Therapist asked group members to identify barriers to achieving identified goal and strategies to help them achieve their goal. Therapist led group in processing their goal maps, assisting clients with establishing SMART goals. Therapist provided support by using reflective listening.
--- NOTE | 2018-01-15 08:25 | BH.MDN ---
Multi-Disciplinary Note - Note 45-min Individual Time Started:: 12:38 Date: 01/15/18 Purpose of session/treatment goals addressed:: The purpose of this session was to review with client current treatment goal progress while in [facility] program and areas of ongoing difficulties with symptom management. Another goal was to discuss strategies for client to continue to maintain gains following discharge to [facility] level of care, as well as review identified warning signs, triggers, and effective coping skills. Eye Contact:: Good Motor Activity:: Appropriate Appearance:: Neat, Casual Speech:: Appropriate Mood:: Euthymic, Anxious Affect:: Congruent Thoughts:: Linear, Logical, No evidence of hallucinations/delusions noted Staff Interventions:: Therapist asked open ended and furthering questions to elicit information regarding client perception of treatment goal progress and symptom management.Used strengths based approach to aide client in identifying areas of growth as well as commended progress made. Provided supportive feedback and empathic responses as client discussed ongoing stressors and areas of frustration. commended client progress made. Worked with client to review discharge plan and healthy coping skills identified. Client Response:: Client agree to meet for session and remained engaged throughout. She worked with this therapist to review progress while in [facility] program and discussed feeling as though she has begun to notice differences in severity of her mental health symptoms. Client went on to explain feeling less depressed and more confident in her ability to continue to make positive strides forward. She indicated that although she is nervous to be stepping down to the [facility] program, she now knows that she has the capability to achieve much more than she had ever believed and is gaining the knowledge and skills needed to continue to maintain these gains made. Client reviewed with therapist the coping skills toolbox she was given as homework in previous session, however indicated at times struggling to find coping skills and may enjoy when needing to relax or find healthy distractions. Client discussed not previously having the time to commit to engaging in activities just for her own enjoyment and feeling somewhat ashamed of not knowing what she would enjoy doing in her spare time. Responded well to therapist normalizing this frustration with client and brainstorming strategies for rediscovering her interests. Agreeable to the challenge of identifying and trying 1-2 new things this week that client may be interested in pursuing as a healthy means for relaxation, distraction, or emotion release. Risks/Concerns:: No risk or concerns at this time. Client denies active suicidal ideation, plain, or intent as of 01/15/18 and expresses ability to maintain safety. Client is aware of the crisis resources available and willing to use these should she feel unable to maintain safety. Client continues to indicate maintaining sobriety since admitting to PHP program and denies active urges to relapse. Client continues to be encouraged to attend AA meetings or reach out for ongoing support. Progress Toward Goals/Plan:: Significant progress made. Client has displayed high levels of motivation and appears determined to continue making healthy changes regarding her mental health. She has been consistently attending all appointments, actively participating in treatment, and regularly completes assigned homework. Client reports successfully maintaining sobriety throughout duration of PHP program. CLient indicates beginning to use healthy coping skills of mindfulness and deep breathing to reduce anxiety as well as challenging negative thinking patterns. Client expresses some difficulty in consistent application of such. Recommended to step down to IOP level of care to maintain gains, prevent alcohol relapse or decompensation, and maintain stability. Client would benefit from increased understanding of stress management strategies, warning signs and triggers for alcohol use, continued structured support, increased coping skills, increased psychoeducation on dx, and medication management. Time Stopped:: 13:17
--- NOTE | 2018-01-15 12:15 | BH.NET ---
Nursing Education/Training - Session Information Type of Session: Individual Other Health Issues:: Client wished to discuss smoking cessation with this RN. Informed client that there are several options available to assist with tobacco cessation, including nicotine patches/gum/lozenges and medications such as Chantix. She is encouraged to talk to her PCP about these options, and encouraged to try delaying her reaction to cravings by keeping herself busy with other activities. Client is advised not to use candy or food as a substitute for cigarettes, as this may cause unwanted weight gain. Supportive listening provided.
--- NOTE | 2018-01-15 15:41 | BH.SGPN_ITS ---
Service Group Progress Note - Session Psychotherapy Session #1 Date Open:: 01/15/18 Time Started:: 09:05 Time Stopped:: 10:15 Targeted Problem #:: 1 Type of Group:: Process Goal of Group:: The goal of today's group was to check-in with client's mood, stressors, and positives, review homework and introduce topic for the day. Client Response/Progress/Benefit:: PT reported she is sober for 8 days and rewarded herself by going to the [employer] store to buy sometime small foerself. Pt shared she is officially applying for disability because she does not believe she would be able to return to her work. Pt reported she feels relieved that she has decided to apply for disability because [facility] thought of returning to work makes her extremely anxious since she doesn't believe she could complete the job responsibilities. Pt reported her daughter is visiting this weekend although she is excited to visit with her daughter she is nervous her daughter will want to drink with pt so pt is considering communicating with her daughter a little bit about pt not drinking. Pt seemed to benefit from support by peers. Progress noted by maintaining sobriety for 8 days. Eye Contact:: Good Motor Activity:: Appropriate Appearance:: Casual Speech:: Appropriate Mood:: Anxious Affect:: Congruent Thoughts:: Linear, Logical, No evidence of hallucinations/delusions noted Staff Interventions:: Therapist used open-ended questions to elicit information about client's current stressors and mood state. Therapist was supportive by using active listening and reflection.
--- NOTE | 2018-01-15 16:06 | BH.DS ---
Discharge Summary - Demographics Date of Admission:: 01/11/18 Discharge Date: 01/15/18 Presenting Problems at Admission:: Pt is a 52 year old female with a history of Major Depressive Disorder, Unspecified Anxiety, and Alcohol Use Disorder. Referred to Behavioral Health [facility] following what Client describes as I had a break in which she had a panic attack and had to leave work on 01/06. This was followed by referral by outpatient psychiatrist, Dr. Porras, at [facility] for [facility] and [facility] emergency dept. Crisis assessment. At time of admission, CLient reports increased anxiety and intrusive thoughts related to occupational burnout. CLient reported sx at time of intake include increased anxiety and overwhelming stress due to occupational stressors, increased guilt and avoidance, intrusive thoughts resulting in regular daily panic attacks, increased alcohol use as a primary coping mechanism, decreased concentration and focus, and increased psychosocial stressors resulting in inability to function at baseline. 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 Anxiety unspecified. Rule out PTSD. Alcohol use disorder moderate. Nicotine use disorder. Cluster B traits Reason for Discharge:: No longer meets criteria for [facility] level of care. Completed treatment plan goals and reports decrease in severity, duration, and frequency of intrusive thoughts and overwhelming anxiety. Client reports no longer experiencing dx panic attacks and has successfully maintained sobriety throughout duration of admission in [facility] program. - Treatment Progress During Treatment & Response: Significant progress made. Client has displayed high levels of motivation and appears determined to continue making healthy changes regarding her mental health. She has been consistently attending all appointments, actively participating in treatment, and regularly completes assigned homework. Client reports successfully maintaining sobriety throughout duration of [facility] program. CLient indicates beginning to use healthy coping skills of mindfulness and deep breathing to reduce anxiety as well as challenging negative thinking patterns. Client expresses some difficulty in consistent application of such. Denies intrusive thoughts about hurting self or others. No psychosis noted.She has worked on individualized sobriety relapse prevention toolbox and completed alcohol consumption cost/benefit analysis. Discussed progress with pt and treatment team with plan to step down to IOP next week. Issues Still to be Addressed:: Continues to report intrusive thoughts and ongoing sx of anxiety surrounding maintaining current progress made. Client reports difficulties in consistent application of healthy coping skills and struggling to identify ways to reframe or challenge distorted thinking patterns when experiencing urges to consume alcohol or smoke. Reports limited supports outside of family. Discharge Recommendations/Instructions:: Recommended to step down to IOP level of care to maintain gains, prevent alcohol relapse or decompensation, and maintain stability. Client would benefit from increased understanding of stress management strategies, warning signs and triggers for alcohol use, continued structured support, increased coping skills, increased psychoeducation on dx, and medication management. Discharge Handout: Complete Discharge Handout with client on aftercare options and continuity of care.
--- NOTE | 2018-01-20 | BH.DS_ITS ---
Discharge Summary - Demographics Date of Admission:: 01/11/18 Discharge Date: 01/15/18 Presenting Problems at Admission:: Pt is a 52 year old female with a history of Major Depressive Disorder, Unspecified Anxiety, and Alcohol Use Disorder. Referred to Behavioral Health [facility] following what Client describes as I had a break in which she had a panic attack and had to leave work on 01/06. This was followed by referral by outpatient psychiatrist, Dr. Porras, at [facility] for [facility] and [facility] emergency dept. Crisis assessment. At time of admission, CLient reports increased anxiety and intrusive thoughts related to occupational burnout. CLient reported sx at time of intake include increased anxiety and overwhelming stress due to occupational stressors, increased guilt and avoidance , intrusive thoughts resulting in regular daily panic attacks, increased alcohol use as a primary coping mechanism, decreased concentration and focus, and increased psychosocial stressors resulting in inability to function at baseline. 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 Anxiety unspecified. Rule out PTSD. Alcohol use disorder moderate. Nicotine use disorder. Cluster B traits Reason for Discharge:: No longer meets criteria for [facility] level of care. Completed treatment plan goals and reports decrease in severity, duration, and frequency of intrusive thoughts and overwhelming anxiety. Client reports no longer experiencing dx panic attacks and has successfully maintained sobriety throughout duration of admission in PHP program. - Treatment Progress During Treatment & Response: Significant progress made. Client has displayed high levels of motivation and appears determined to continue making healthy changes regarding her mental health. She has been consistently attending all appointments, actively participating in treatment, and regularly completes assigned homework. Client reports successfully maintaining sobriety throughout duration of [facility] program. CLient indicates beginning to use healthy coping skills of mindfulness and deep breathing to reduce anxiety as well as challenging negative thinking patterns. Client expresses some difficulty in consistent application of such. Denies intrusive thoughts about hurting self or others. No psychosis noted.She has worked on individualized sobriety relapse prevention toolbox and completed alcohol consumption cost/benefit analysis. Discussed progress with pt and treatment team with plan to step down to IOP next week. Issues Still to be Addressed:: Continues to report intrusive thoughts and ongoing sx of anxiety surrounding maintaining current progress made. Client reports difficulties in consistent application of healthy coping skills and struggling to identify ways to reframe or challenge distorted thinking patterns when experiencing urges to consume alcohol or smoke. Reports limited supports outside of family. Discharge Recommendations/Instructions:: Recommended to step down to IOP level of care to maintain gains, prevent alcohol relapse or decompensation, and maintain stability. Client would benefit from increased understanding of stress management strategies, warning signs and triggers for alcohol use, continued structured support, increased coping skills, increased psychoeducation on dx, and medication management. Discharge Handout: Complete Discharge Handout with client on aftercare options and continuity of care.
--- NOTE | 2018-03-10 15:41 | BH.SGPN_ITS ---
Service Group Progress Note - Session Psychotherapy Session #2 Date Open:: 01/14/18 Time Started:: 10:18 Time Stopped:: 11:15 Targeted Problem #:: 1 Type of Group:: Illness Management Goal of Group:: The goal of group was to increase understanding of goals and goal setting and practice a method of goal setting. Client Response/Progress/Benefit:: Pt contributed positively to discussion and listened attentively to peers. Pt reported when she doesn't reach her goals it' s typically because she set them too high. Pt reported she needs to focus on establishing goals that are realistic. When processing activity pt reported it' s helpful to know restarting or reframing her goals is okay, instead of looking at it as a failure. Pt seemed to benefit from learning about SMART goals as well as rehearsing setting small goals. Eye Contact:: Good Motor Activity:: Appropriate Appearance:: Neat Speech:: Appropriate Mood:: Euthymic Affect:: Congruent Thoughts:: Linear, Logical, No evidence of hallucinations/delusions noted Staff Interventions:: Therapist facilitated group discussion about goals and goal setting. Therapist taught group the acronym SMART (Specific, Measurable, Achievable, Realistic, Timely) as a tool to help with goal setting. Therapist led the group in an activity to be used as a method of practicing goal setting. Therapist guided the group through the SMART acronym as group was participating in activity. Therapist assisted group members with connecting the importance of making small, realistic goals. Psychotherapy Session #3 Date Open:: 01/14/18 Time Started:: 11:25 Time Stopped:: 12:15 Targeted Problem #:: 1 Type of Group:: Functional Skills Development Goal of Group:: The goal of group was to identify a goal for the weekend, explore the potential barriers to achieving that set goal, and identify strategies to overcome barriers. Client Response/Progress/Benefit:: Pt active and engaged throughout group session. Pt identified her goal is to read the bible at least 3 times throughout the week for 15 minutes. Pt reported the benefit of this goal is to reduce stress, improve relationships, and increase hope. Pt reported obstacles to this goal include: time and excuses. Pt identified solutions to these obstacles to include: doing goal in the morning and reviewing the benefits of why she wants to complete the goal. Pt reported her will be support person to encourage her to complete the goal. Pt seemed to benefit from identifying a small SMART goal that could benefit her mental health. Eye Contact:: Good Motor Activity:: Appropriate Appearance:: Neat Speech:: Appropriate Mood:: Euthymic Affect:: Congruent Thoughts:: Linear, Logical, No evidence of hallucinations/delusions noted Staff Interventions:: Therapist facilitated group activity in which group members identified a goal to work on over the next week. Therapist asked group members to identify barriers to achieving identified goal and strategies to help them achieve their goal. Therapist led group in processing their goal maps , assisting clients with establishing SMART goals. Therapist provided support by using reflective listening.
[2018-03-26 11:49] VITALS: BP 109/74; PULSE 70; RESP 14
--- NOTE | 2018-04-06 09:10 | BH.MDN_ITS ---
Multi-Disciplinary Note - Note 45-min Individual Time Started:: 12:31 Date: 01/14/18 Purpose of session/treatment goals addressed:: The purpose of this session was to assess client current symptom management and treatment goal progress. Another purpose was to discuss alterative coping skills and risk management strategies to place in Coping tool kit that client may use when overwhelmed or facing difficult emotions. Begin planning for client step-down to PHP level of care. Eye Contact:: Good Motor Activity:: Appropriate Appearance:: Casual Speech:: Appropriate Mood:: Euthymic Affect:: Congruent Thoughts:: Linear, Logical, No evidence of hallucinations/delusions noted Staff Interventions:: Therapist used open ended questions to elicit client's thoughts about treatment progress and stepping down to IOP level of care. Therapist used strengths-based approach to review with client progress thus far. Worked collaboratively with client to identify strategies that can help client maintain success while stepping down to IOP level of care. Therapist introduced the concept of a Coping toolkit and aided Client in identifying adame components of the kit to include in order to best help client achieve success. Client Response:: Client responded weill to session and remained engaged throughout. She shared the letter to her future self that she had been prompted to write in previous session. Client discussed wanting to not only remind herself of the positive progress she is making, but also of her motivations not to drink and all the negative consequences she may be likely to overlook or forget in the future. Client shared that writing this had been muuch more difficult than she had expected as it had required her to confront of the unhealthy and potentially harmful effects her behaviors were having on both herself and those around her. Client and therapist discussed the importance of confronting and processing those emotions in order to better avoid similar patterns of behavior in the future. Client and therapist discussed CLient's progress throughout her admission in [facility] and client's opinion on stepping down to a less intensive IOP level of care. CLient indicated being apprehensive and unsure of if she will be able to sustain her progress, but willing to give it a try. Therapist reviewed with client the skills she has been ustilizing so far in order to maintain sobriety and manage mental health symptoms that have led to drinking behaviors. Client and therapist discussed creating a Coping Tool Kit to help Client remember to use healthy coping skills. Client indicated being unsure of what she could place in such a toolkit and therapist discussed the importance of a variety of options for various potential stressors. Client identified wanting to include her shit list, reminder of 5-10 motivations not to drink, letter to her future self, and physical objects to use as calming aides or to remind her to utilize mindfulness techniques. Client agree to take time tonight to think about and complete this kit in prep for transitioning to [facility] level of care. Risks/Concerns:: No risks or concerns at this time. Client denies suicidal ideation, plan or intention to date, 01/14/18. Continued sobriety per client report since 01/08/18. Progress Toward Goals/Plan:: Client continues to make significant strides in treatment. She is actively engaged in both the individual and group components of the program. CLient has made noteable efforts to avctively think about and apply the skills she is learning in group and has successfully maintained sobriety since admitting to the program. CLient reports decreased levels of anxiety and depression and indicates beginning to feel more confident in identifying and challenging distorted thinking patterns. CLient has met treatment goals and given levels of progress is to discharge from [facility] level of care tomorrow and begin the IOP program. Time Stopped:: :19
--- NOTE | 2018-04-08 08:29 | BH.MDN_ITS ---
Multi-Disciplinary Note - Note 45-min Individual Time Started:: 12:38 Date: 01/15/18 Purpose of session/treatment goals addressed:: The purpose of this session was to review with client current treatment goal progress while in [facility] program and areas of ongoing difficulties with symptom management. Another goal was to discuss strategies for client to continue to maintain gains following discharge to [facility] level of care, as well as review identified warning signs, triggers, and effective coping skills. Eye Contact:: Good Motor Activity:: Appropriate Appearance:: Neat, Casual Speech:: Appropriate Mood:: Euthymic, Anxious Affect:: Congruent Thoughts:: Linear, Logical, No evidence of hallucinations/delusions noted Staff Interventions:: Therapist asked open ended and furthering questions to elicit information regarding client perception of treatment goal progress and symptom management.Used strengths based approach to aide client in identifying areas of growth as well as commended progress made. Provided supportive feedback and empathic responses as client discussed ongoing stressors and areas of frustration. commended client progress made. Worked with client to review discharge plan and healthy coping skills identified. Client Response:: Client agree to meet for session and remained engaged throughout. She worked with this therapist to review progress while in [facility] program and discussed feeling as though she has begun to notice differences in severity of her mental health symptoms. Client went on to explain feeling less depressed and more confident in her ability to continue to make positive strides forward. She indicated that although she is nervous to be stepping down to the [facility] program, she now knows that she has the capability to achieve much more than she had ever believed and is gaining the knowledge and skills needed to continue to maintain these gains made. Client reviewed with therapist the coping skills toolbox she was given as homework in previous session, however indicated at times struggling to find coping skills and may enjoy when needing to relax or find healthy distractions. Client discussed not previously having the time to commit to engaging in activities just for her own enjoyment and feeling somewhat ashamed of not knowing what she would enjoy doing in her spare time. Responded well to therapist normalizing this frustration with client and brainstorming strategies for rediscovering her interests. Agreeable to the challenge of identifying and trying 1-2 new things this week that client may be interested in pursuing as a healthy means for relaxation, distraction, or emotion release. Risks/Concerns:: No risk or concerns at this time. Client denies active suicidal ideation, plain, or intent as of 01/15/18 and expresses ability to maintain safety. Client is aware of the crisis resources available and willing to use these should she feel unable to maintain safety. Client continues to indicate maintaining sobriety since admitting to [facility] program and denies active urges to relapse. Client continues to be encouraged to attend AA meetings or reach out for ongoing support. Progress Toward Goals/Plan:: Significant progress made. Client has displayed high levels of motivation and appears determined to continue making healthy changes regarding her mental health. She has been consistently attending all appointments, actively participating in treatment, and regularly completes assigned homework. Client reports successfully maintaining sobriety throughout duration of [facility] program. CLient indicates beginning to use healthy coping skills of mindfulness and deep breathing to reduce anxiety as well as challenging negative thinking patterns. Client expresses some difficulty in consistent application of such. Recommended to step down to [facility] level of care to maintain gains, prevent alcohol relapse or decompensation, and maintain stability. Client would benefit from increased understanding of stress management strategies, warning signs and triggers for alcohol use, continued structured support, increased coping skills, increased psychoeducation on dx, and medication management. Time Stopped:: 13:17
== END 2018-01-15 14:00 | disposition home or self-care (01) ==
LOC: BHPHP 09:00
PROVIDERS: Visit Provider Psychiatry & Neurology Psychiatry
DX: F33.2 Major depressive disorder, recurrent severe without psychotic features (principal); F41.9 Anxiety disorder, unspecified; F10.20 Alcohol dependence, uncomplicated; F17.210 Nicotine dependence, cigarettes, uncomplicated; Z79.899 Other long term (current) drug therapy
CPT/HCPCS: H0035; 90834; 90853; G0410

== ENCOUNTER → 2018-01-08 13:31 | Outpatient (CLI) | payer BC, SELFPAY ==
[2018-01-08 15:23] LABS: AST(SGOT) 23 U/L (15-37); Alanine Aminotransfer ALT/SGPT 35 U/L (13-56); Albumin, Serum 3.4 g/dL (3.2-5.0); Alkaline Phosphatase 91 U/L (45-117); Globulin 4.2 g/dL (2.2-4.2); Protein, Total 7.6 g/dL (6.4-8.2); Thyroid Stim Hormone (TSH) 0.72 uIU/mL (0.358-3.74)
--- NOTE | 2018-01-15 13:12 | PCM.PN.BLA ---
Progress Note This is an update to the history and physical of 01/08/2018. Patient is seen in follow-up for major depressive disorder recurrent severe F 33.2 versus substance induced depression, anxiety unspecified, PTSD, alcohol use disorder, nicotine use disorder, cluster B traits. History is been obtained per interview with patient, discussion with staff, review of chart. Case discussed with treatment team. Chief complaint Depression-I am more hopeful Interim history Mild to moderate depressive symptoms persist but of decreased intensity. Patient reports her depression is improved over the past week and attributes the improvement to cessation of alcohol, medications and coping skills gained through IOP. She reports increased energy and interest in participating in activities. No current suicidal ideation. No homicidal ideation. No symptoms consistent with psychosis. Increased communication with . Decreased ruminative anxiety. 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 She has been sleeping from 7:30 PM to 5 AM. Appetite fair. Denies nausea vomiting or diarrhea. Reports her GI symptoms have resolved. Denies ingestion of alcohol over the past 8 days. Denies urges for alcohol. Admits that alcohol remains in the household as her continues to drink. Compliant with medication. Denies adverse effects to medication. Feels Campral has been helpful. Is reducing Cymbalta and cross titrating with Effexor per recommendation of Dr. Porras. Currently taking Cymbalta 90 mg daily and Effexor X are 37.5 mg daily. Lab work reviewed. Liver function tests within normal limits. TSH 0.72. Mental status exam Alert and oriented . No acute distress. Ambulatory with normal gait and station. Appears stated age. Casually dressed and groomed. Appropriate hygiene. Cooperative with interview. Good eye contact. No psychomotor agitation or retardation. Mood depressed. Affect congruent. Speech is clear and with regular rate and rhythm. Language fluent. Thought process organized. Associations logical. Thought content significant for ruminative anxiety and themes of depression. No suicidal or homicidal ideation related or detected.. No symptoms consistent with psychosis noted or detected. Immediate recent and remote memory grossly intact. Attention and concentration are fair. Estimated intelligence and fund of knowledge average. Judgment and insight fair. Diagnosis Major depressive disorder recurrent F 33.2 Anxiety unspecified Rule out PTSD Alcohol use disorder moderate Nicotine use disorder Cluster B traits Plan Patient has participated in [facility] and is appropriate for discharge from [facility] and admission to [facility]. Ongoing treatment in the structured setting is necessary to maintain gains and prevent decompensation. Risks benefits alternatives of medications discussed with patient. Patient acknowledges understanding. She will reduce her Cymbalta to 60 mg daily and increase her Effexor XR to 75 mg daily for continued cross titration. Continue propranolol 10 mg twice daily. Patient has discontinued Klonopin. Continue Campral 666 mg p.o. 3 times daily. Encouraged ongoing alcohol abstinence. Encouraged to follow-up with Dr. Porras and with therapist Jolene. Further lab work will be obtained as needed. 20 minutes of Insight oriented psychotherapy provided including cope ahead skills for maintaining alcohol abstinence. Patient acknowledges understanding and is in agreement with plan. She feels able to maintain safety. She agrees to seek help or emergency care if feeling unsafe to self or others.
--- NOTE | 2018-01-15 13:19 | PN_ITS ---
Progress Note This is an update to the history and physical of 01/08/2018. Patient is seen in follow-up for major depressive disorder recurrent severe F 33.2 versus substance induced depression, anxiety unspecified, PTSD, alcohol use disorder, nicotine use disorder, cluster B traits. History is been obtained per interview with patient, discussion with staff, review of chart. Case discussed with treatment team. Chief complaint Depression-I am more hopeful Interim history Mild to moderate depressive symptoms persist but of decreased intensity. Patient reports her depression is improved over the past week and attributes the improvement to cessation of alcohol, medications and coping skills gained through IOP. She reports increased energy and interest in participating in activities. No current suicidal ideation. No homicidal ideation. No symptoms consistent with psychosis. Increased communication with . Decreased ruminative anxiety. 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 She has been sleeping from 7:30 PM to 5 AM. Appetite fair. Denies nausea vomiting or diarrhea. Reports her GI symptoms have resolved. Denies ingestion of alcohol over the past 8 days. Denies urges for alcohol. Admits that alcohol remains in the household as her continues to drink. Compliant with medication. Denies adverse effects to medication. Feels Campral has been helpful. Is reducing Cymbalta and cross titrating with Effexor per recommendation of Dr. Porras. Currently taking Cymbalta 90 mg daily and Effexor X are 37.5 mg daily. Lab work reviewed. Liver function tests within normal limits. TSH 0.72. Mental status exam Alert and oriented . No acute distress. Ambulatory with normal gait and station. Appears stated age. Casually dressed and groomed. Appropriate hygiene. Cooperative with interview. Good eye contact. No psychomotor agitation or retardation. Mood depressed. Affect congruent. Speech is clear and with regular rate and rhythm. Language fluent. Thought process organized. Associations logical. Thought content significant for ruminative anxiety and themes of depression. No suicidal or homicidal ideation related or detected.. No symptoms consistent with psychosis noted or detected. Immediate recent and remote memory grossly intact. Attention and concentration are fair. Estimated intelligence and fund of knowledge average. Judgment and insight fair. Diagnosis Major depressive disorder recurrent F 33.2 Anxiety unspecified Rule out PTSD Alcohol use disorder moderate Nicotine use disorder Cluster B traits Plan Patient has participated in [facility] and is appropriate for discharge from [facility] and admission to [facility]. Ongoing treatment in the structured setting is necessary to maintain gains and prevent decompensation. Risks benefits alternatives of medications discussed with patient. Patient acknowledges understanding. She will reduce her Cymbalta to 60 mg daily and increase her Effexor XR to 75 mg daily for continued cross titration. Continue propranolol 10 mg twice daily. Patient has discontinued Klonopin. Continue Campral 666 mg p.o. 3 times daily. Encouraged ongoing alcohol abstinence. Encouraged to follow-up with Dr. Porras and with therapist Jolene. Further lab work will be obtained as needed. 20 minutes of Insight oriented psychotherapy provided including cope ahead skills for maintaining alcohol abstinence. Patient acknowledges understanding and is in agreement with plan. She feels able to maintain safety. She agrees to seek help or emergency care if feeling unsafe to self or others.
--- NOTE | 2018-01-15 13:20 | BH.DR.ITP ---
Initial Treatment Plan - Patient Information Visit Information: ADMISSION DATE: EXPECTED LOS: 4-6 weeks Diagnoses:: Major depressive disorder F 33.2 - Problems/Symptoms Problem #1:: Depression Symptom:: Sad mood, anhedonia, decreased energy, recent thoughts of Problem #2:: Anxiety Symptom:: rumination
== END ==
PROVIDERS: Visit Provider Psychiatry & Neurology Psychiatry
DX: Z79.899 Other long term (current) drug therapy (principal); E55.9 Vitamin D deficiency, unspecified
CPT/HCPCS: 36415; 80076; 80307; 80320; 84443; G0480

== ENCOUNTER 2018-01-18 09:00 | Outpatient (RCR) | payer BC, SELFPAY ==
--- NOTE | 2018-01-18 13:48 | BH.COMM ---
Communication Note - Communication with Client Communication Note: This therapist met briefly with Client to review assigned homework for the weekend. CLient had been prompted to create a Sobriety Toolbox containing healthy coping skills, motivations, important reminders, supports, and tools to use in order to maintain sobriety and prevent relapse. Client discussed dedicating a spare room as her self-care area and safe space. She shared with this therapist the list of healthy coping skills she plans to use and indicated having the supplies necessary to do so in a specific place in that room. Client went on to discuss practicing mindfulness over the weekend and indicated finding this helpful in reducing the frequency of smoking. She expressed feeling as though she is beginning to see significant improvements in symptoms of anxiety and depression. Given homework to identify potential extra curricular activities she may be interested in.
--- NOTE | 2018-01-18 14:49 | BH.SGPN ---
Service Group Progress Note - Session Psychotherapy Session #1 Date Open:: 01/18/18 Time Started:: 09:05 Time Stopped:: 09:57 Targeted Problem #:: 1 Type of Group:: Process - 6 participants Goal of Group:: The goal of today's group was to check-in with client's mood, stressors, and positives, review homework. Client Response/Progress/Benefit:: Client repsonded positively to session and was actively engaged throughout. She discussed having had a positive weekend as she had spent much time with friends and family as well as accomplished some personal goals. Client went on to explain that she had been challenged in individual session to begin a mindfulness practice in her daily life. CLient described applying mindfulness in the form of presence. She indicated that paying attention to her surroundings and what she was putting into her body was helpful in allowing her to enjoy the moment. Client described practicing mindful smoking which has brought her attention to the amount of toxins she is putting into her body. She shared that she is somewhat worried about managing urges when she does not have a lot of things to occupy her time. Client benefited from the encouragement and support of the group. She discussed feeling as though she is beginning to notice significant decrease in adverse symptomology. Client recommended ongoing IOP tx to maintain gains and current stability, improve consistent use of skills learned, and increase ability to challenge distorted thinking patterns. Eye Contact:: Good Motor Activity:: Appropriate Appearance:: Casual Speech:: Appropriate Mood:: Euthymic Affect:: Full, Congruent Thoughts:: Linear, Logical, No evidence of hallucinations/delusions noted Staff Interventions:: Therapist used open-ended questions to elicit information about client's current stressors and mood state. Therapist reviewed homework assigned from previous groups. Therapist was supportive by using active listening and reflection.
--- NOTE | 2018-01-18 15:43 | BH.SGPN ---
Service Group Progress Note - Session Psychotherapy Session #2 Date Open:: 01/18/18 Time Started:: 10:10 Time Stopped:: 11:05 Targeted Problem #:: 1 Type of Group:: Illness Management Goal of Group:: To increase self-awareness of current reality in regards to mental wellness and desired mental wellness. Client Response/Progress/Benefit:: Pt contributed to discussion and listened attentively to others. Pt reported she recognizes she puts more obstacles in front herself that hold her back from getting to her desired reality. Pt reported putting others first is the most impactful obstacle for her because she forgets to take care of herself. Pt shared in her current reality she feels like her life is an unpredicatable and constantly going up and down. Pt reported for her desired reality she wants more stability and increased control. Pt seemed to benefit from increased awareness of her current reality and identifying future goal for herself. Eye Contact:: Good Motor Activity:: Appropriate Appearance:: Casual Speech:: Appropriate Mood:: Euthymic Affect:: Congruent Thoughts:: Linear, Logical, No evidence of hallucinations/delusions noted Staff Interventions:: Therapist facilitated group discussion about current reality in regards to mental health. Client provided each group member a piece of paper and asked them to draw their current reality. Therapist led the processing of each group members drawing. Therapist provided each group member with a second piece of paper and asked clients to draw desired mental wellness. Therapist processed each group members drawing, helping clients connect the two realities.
--- NOTE | 2018-01-18 16:38 | BH.MTP ---
Master Treatment Plan - Patient Information Program Physician:: Mela Lanier Primary Therapist:: Diana Little - Psychiatric Diagnoses Psychiatric Diagnoses:: Major depressive disorder recurrent fear F 33.2. Anxiety unspecified. Rule out PTSD. Alcohol use disorder moderate. Nicotine use disorder. Cluster B traits Diagnosis Code(s):: F 33.2 - Estimated LOS Estimated LOS (in weeks):: 6 Problem/Goal #1 - Problem/Goal #1 Stated Goal:: Continue to maintain sobriety and increase awareness of the role that emotions play in substance abuse as well as improve use of healthy coping mechanisms (this goal and objective was carried over from [facility] level of care) Description of Barriers: Client has a hx of unhealthy means for coping including drinking, smpking, and gambling behaviors which has caused client some financial distress. Client dealing with various psychosocial stressors including recently leaving her job due to increased panic attacks while at work. She additionally discussed difficulties in managing stress/anxiety, increased rumination and negative thinking, increased alcohol use prior to admission, few supports outside of family Functional Impact: Client reports increased occupational stress, ruminating thoughts, difficulties managing emotions, and unhealthy coping via increased drinking behaviors which have impacted ability to function at baseline. She shared increased difficulties in completing duties of her job due to increase stress and anxiety, ultimately resulted in client experiencing an anxiety attack at work. She shared decreased enjoyment in activities previously enjoyed and increased irritability as well. Client shared increased alcohol consumption as a result of stress and reports relying on alcohol as her main source of stress relief. She denies any substantial impact on daily functioning. Goal Relevant Strengths/Supports: Client is intelligent, caring, empathic, and able to relate well with others, she appears motivated to change and willing to try new things in order to improve ability to reduce drinking, cope with urges and mental health symptoms, as well as learn strategies to better regulate emotions. She reports her family is very supportive and are her biggest sources of motivation. - Objectives Objective #1 Stated Objective: Client will identify 2-3 internal coping strategies rather than external solutions to manage stress and overwhelming emotion. Interventions: Therapist will help client develop insight into triggers for anxiety as well as drinking and help client find internal solutions to triggers. Discharge Criteria: Client will have achieved this objective when can utilize at least 2 internal coping mechanisms to manage emotions while successfully maintaining sobriety. Target Date: 03/01/18 Review Date: 02/15/18 Problem/Goal #2 - Problem/Goal #2 Stated Goal:: Reduce overall frequency, intensity, and duration of the ruminating thoughts that cause increased anxiety and panic so that daily functioning is not impaired. Description of Barriers: Client has a hx of unhealthy means for coping including drinking, smpking, and gambling behaviors which has caused client some financial distress. Client dealing with various psychosocial stressors including recently leaving her job due to increased panic attacks while at work. She additionally discussed difficulties in managing stress/anxiety, increased rumination and negative thinking, increased alcohol use prior to admission, few supports outside of family. Functional Impact: Client reports increased occupational stress, ruminating thoughts, difficulties managing emotions, and unhealthy coping via increased drinking behaviors which have impacted ability to function at baseline. She shared increased difficulties in completing duties of her job due to increase stress and anxiety, ultimately resulted in client experiencing an anxiety attack at work. She shared decreased enjoyment in activities previously enjoyed and increased irritability as well. Client shared increased alcohol consumption as a result of stress and reports relying on alcohol as her main source of stress relief. She denies any substantial impact on daily functioning. Goal Relevant Strengths/Supports: Client is intelligent, caring, empathic, and able to relate well with others, she appears motivated to change and willing to try new things in order to improve ability to reduce drinking, cope with urges and mental health symptoms, as well as learn strategies to better regulate emotions. She reports her family is very supportive and are her biggest sources of motivation. - Objectives Objective #1 Stated Objective: Client will identify 2-3 anxiety triggers and 2 coping skills to use when feeling anxious. Interventions: Therapist will encourage client to use self-awareness strategies and assist client in developing coping strategies to manage ruminating thoughts. Discharge Criteria: Client will have met this goal when can identify at least 2 triggers and 2 ways to cope with anxieties. Target Date: 03/01/18 Review Date: 02/15/18 Objective #2 Stated Objective: Client will learn and implement 2-3 problem solving strategies to realistically addressing worries. Interventions: Therapist will teach client problem-solving strategies involving defining a problem, brainstorming solutions, selecting and implementing various solutions. Discharge Criteria: Client will have achieved this goal when can verbalize at least two problem solving strategies and utilize the strategies to realistically address worries. Target Date: 03/01/18 Review Date: 02/15/18 Problem/Goal #3 - Problem/Goal #3 Stated Goal:: Client will reduce depressive symptoms, feelings of worthlessness, and anhedonia due to Major Depressive Disorder through Intensive Outpatient Program. Description of Barriers: Client has a hx of unhealthy means for coping including drinking, smpking, and gambling behaviors which has caused client some financial distress. Client dealing with various psychosocial stressors including recently leaving her job due to increased panic attacks while at work. She additionally discussed difficulties in managing stress/anxiety, increased rumination and negative thinking, increased alcohol use prior to admission, few supports outside of family. Functional Impact: Client reports increased occupational stress, ruminating thoughts, difficulties managing emotions, and unhealthy coping via increased drinking behaviors which have impacted ability to function at baseline. She shared increased difficulties in completing duties of her job due to increase stress and anxiety, ultimately resulted in client experiencing an anxiety attack at work. She shared decreased enjoyment in activities previously enjoyed and increased irritability as well. Client shared increased alcohol consumption as a result of stress and reports relying on alcohol as her main source of stress relief. She denies any substantial impact on daily functioning. Goal Relevant Strengths/Supports: Client is intelligent, caring, empathic, and able to relate well with others, she appears motivated to change and willing to try new things in order to improve ability to reduce drinking, cope with urges and mental health symptoms, as well as learn strategies to better regulate emotions. She reports her family is very supportive and are her biggest sources of motivation. - Objectives Objective #1 Stated Objective: Identify at least 2-3 negative self-talk messages used to reinforce giult and negative self-talk messages and replace thoughts with positive messages. Interventions: Therapist will help client identify distorted, negative beliefs about self and replace with more realistic, affirmative messages. Discharge Criteria: Client will have achieved this goal when can verbalize at least 2 negative self-talk messages and effectively replace those thoughts with affirmative messages.
--- NOTE | 2018-01-19 12:07 | BH.SGPN ---
Service Group Progress Note - Session Psychotherapy Session #1 Date Open:: 01/19/18 Time Started:: 09:10 Time Stopped:: 10:00 Type of Group:: Process - 5 group members Goal of Group:: The goal of today's group was to check-in with client's mood, stressors, and positives, review homework and introduce topic for the day. Client Response/Progress/Benefit:: Pt was an active participant in group discussion. Emotion for today is uneasy. Shared that her has to complete a 3 hour psychiatric evaluation tomorrow to re-assess his disability. She reports that this is very overwhelming for her as well as herself. She has been focusing on trying to keep his mind off things. She is going to be driving him to the appointment tomorrow. According to pt she continues to remain sober after 2 weeks. Feels that she is learning to manage her emotions more appropriately discussing that she has increased her awareness of cognitive distortions and has begun to utilize thought reframing skills. Benefited from group support and feedback. Progress noted due to increased awareness and utilization of thought reframing skills. Will continued in IOP to stabilize anxiety, maintain gains, and prevent decompensation. Eye Contact:: Good Motor Activity:: Appropriate Appearance:: Casual Speech:: Appropriate Mood:: Anxious Affect:: Congruent Thoughts:: Linear, Logical, No evidence of hallucinations/delusions noted Staff Interventions:: Therapist used open-ended questions to elicit information about client's current stressors and mood state. Therapist was supportive by using active listening and reflection
--- NOTE | 2018-01-19 14:58 | BH.SGPN_ITS ---
Service Group Progress Note - Session Psychotherapy Session #2 Date Open:: 01/19/18 - 6 group members Time Started:: 10:07 Time Stopped:: 11:06 Targeted Problem #:: 1 Type of Group:: Illness Management Goal of Group:: To increase understanding of components of a problem, learn strategies to solve a problem and rehearse problem solving skills. Client Response/Progress/Benefit:: Client responded well to session, active participant. Client connected with the quote sharing, ?our thoughts can make the problem worse.? Client helped the group process problem-solving strategies, such as the ABCDEs of problem solving. Client reported ?problems come in all shapes in sizes, we have to recognize that.? Client participated in an activity aimed to help group members utilize in the moment problem solving skills. Client reported at times the activity was challenging because the group kept making the same mistakes, however, after reevaluating, the group succeeded. Client appeared to benefit from learning how to more effectively solve problems. Progress noted in client?s maintained sobriety and reduced anxiety, but can continue to benefit from challenging negative thoughts. Eye Contact:: Good Motor Activity:: Appropriate Appearance:: Neat Speech:: Appropriate Mood:: Anxious Affect:: Full Thoughts:: Linear, No evidence of hallucinations/delusions noted Staff Interventions:: Therapist facilitated group discussion about problems and the underlying components of problems. Therapist educated group about various strategies to solving a problem and provided an example of each. Therapist led group in an experiential activity that required group members to use problem solving skills to work together, rehearsing problem solving skills. Psychotherapy Session #3 Date Open:: 01/19/18 - 6 group members Time Started:: 11:10 Time Stopped:: 12:05 Targeted Problem #:: 1 Type of Group:: Functional Skills Development Goal of Group:: To identify steps to solving a personal problem and increase awareness to those barriers that impedes the problem solving process. Client Response/Progress/Benefit:: Client responded well to session, providing good insight. Client shared failing is scary and she does not like to fail, but client recognized ?if you don?t try anything you stay stuck and that?s worse than failing.? Client identified negative self-talk as a problem she would like to solve. Client shared she plans to work towards her goal of daily positive self-talk by using the STOPP technique, challenging negative thoughts daily with a log, and using her supports to keep her accountable. Client reported her barriers are ?myself.. I?m a lifelong negative thinker.? Client appeared to benefit from problem-solving strategies to increase confidence and overcome barriers. Client to continue IOP to promote gains and reduce negative thoughts. Eye Contact:: Good Motor Activity:: Appropriate Appearance:: Neat Speech:: Appropriate Mood:: Euthymic Affect:: Congruent Thoughts:: Linear, No evidence of hallucinations/delusions noted Staff Interventions:: Therapist provided group members with a worksheet in which the group members were instructed to identify a problem and steps need to take to solve that problem. Then therapist instructed group members to identify those barriers that get in the way of solving the problem. Therapist led the processing of the activity. Therapist provided support by using active listening and providing feedback.
--- NOTE | 2018-01-21 14:28 | BH.SGPN_ITS ---
Service Group Progress Note - Session Psychotherapy Session #2 Date Open:: 01/21/18 - 3 group members Time Started:: 10:20 Time Stopped:: 11:12 Targeted Problem #:: 1 Type of Group:: Illness Management Goal of Group:: To increase understanding of what conflict is and increase awareness of how group members manage conflict. Client Response/Progress/Benefit:: Client responded well to session, active participant. Client connected with the quote stating, ?we have to find inner peace within the conflict.? Client shared the mode of communication, jumping to conclusions, high emotions, and body language can all impact one?s ability to manage conflict. Client helped the group identify and process various conflict starters as well as the four conflict resolution styles. 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 Client recognized this has negatively impacted her mental health as she has lost self-confidence by being accommodating. However, client reported she is capable of being cooperative and competing. Client stated , ?I think I deal with internal conflict head on.? Client appeared to benefit from learning the different conflict resolution styles and how they impact mental health. Progress noted in client's improved mood and consistent sobriety , can continue to benefit from thought challenging. Eye Contact:: Good Motor Activity:: Appropriate Appearance:: Neat Speech:: Appropriate Mood:: Euthymic Affect:: Full Thoughts:: Linear, No evidence of hallucinations/delusions noted Staff Interventions:: Therapist facilitated discussion about conflict and conflict resolution. Therapist led group in an activity in which group members had to identify their initial response to conflict and how their response changes based on different situations. Therapist assisted clients with connecting the impact current conflict style has on their mental health. Psychotherapy Session #3 Date Open:: 01/21/18 - 3 group members Time Started:: 11:20 Time Stopped:: 12:15 Targeted Problem #:: 1 Type of Group:: Functional Skills Development Goal of Group:: To identify what contributes positively and negatively to conflict and appropriate ways to manage conflict with others. Client Response/Progress/Benefit:: Client responded well to session, active participant. Client recognized that during the activity she wanted to be accommodating, but was able to challenge that and be cooperative. Client stated asking for others? opinions and ideas helped the group be cooperative and accomplish the task. Client helped the group identify strategies to manage conflict more effectively such as managing strong emotions and stress, having emotional awareness of self and others, and look at the facts and challenge cognitive distortions. Client appeared to benefit from learning conflict resolution strategies. Client showing progress with generalizing healthy coping skills, but can continue to benefit from mood stability. Eye Contact:: Good Motor Activity:: Appropriate Appearance:: Neat Speech:: Appropriate Mood:: Euthymic Affect:: Full Thoughts:: Linear, No evidence of hallucinations/delusions noted Staff Interventions:: Therapist facilitated group activity in which group members were provided with materials and had to eliminate certain items with consensus from group. Therapist processed activity, helping clients connect throughout activity strategies each person used to manage conflict. Therapist led discussion about what contributes to conflict in a positive or negative manner. Therapist facilitated discussion about conflict resolution strategies and provided group member with a handout about effective ways to manage conflict.
--- NOTE | 2018-01-21 14:37 | BH.MDN ---
Multi-Disciplinary Note - Note 60-min Individual Time Started:: 12:28 Date: 01/21/18 Purpose of session/treatment goals addressed:: The purpose of this session was to review with Client the self-care wheel she had completed for homework and discuss the different types of self-care and corresponding benefits. Another purpose was to provide psychoeducation regarding relapse prevention and common reasons relapse occurs, as well as work with Client to identify potential warning signs and strategies for preventing relapse. Eye Contact:: Good Motor Activity:: Appropriate Appearance:: Casual Speech:: Appropriate Mood:: Euthymic Affect:: Full, Congruent Thoughts:: Linear, Logical, No evidence of hallucinations/delusions noted Staff Interventions:: Therapist asked open-ended questions to ellicit additional information regarding Client current symptoms, stressors, implementation of healthy coping skills, as well as maintaining sobriety. Commended Client on areas of progress and used strengths-based approaches to continue promotion of healthy change behaviors. Provided psychoeducation on Relapse, it's common causes, and strategies to prevent it. Introduced Relapse Prevention Plan and began working on plan with Client . Client Response:: Client agreeable to session and did well to remain engaged throughout. She discussed feeling as though she has been able to consistently see improvements in both her mood and energy levels in the last two weeks. Client attributes her ongoing success in the program and improving mental health symptoms to actively reflecting upon skills and insight gained in each group as well as maintaining sobriety throughout the past 2 weeks. Client went on to discuss that utilizing concepts of mindfulness and communicating with supports has been most helpful for client when experiencing increased stress or urges to smoke. CLient proudly shared that she has been able to significantly cut back on nicotine use over the past week. Client reports that although she struggled with smoking more than she would have like yesterday she reminded herself that one slip does not make her a failure and she can start fresh tomorrow. CLient discussed taking things in small steps as helpful in reducing negative thought patterns. Client reviewed with this therapist the self-care wheel she had been given to complete prior to session and identified wanting to improve upon areas of emotional and physical self-care. Client and therapist discussed the importance of self-care as a means for relapse prevention. She responded well to reviewing personal warning signs for burnout as this is a major trigger for Client drinking and use of other unhealthy coping mechanisms. Client identified avoidance, negative mood, and decreased hygiene and personal self-care as major warning signs. She reviewed with therapist the tips for avoiding relapse handout and expressed resonating most with establishing a new routine and creating new rituals to prevent old habits from triggering past unhealthy behaviors. Client shared wanting to complete prevention plan with over the weekend to gain additional insight regarding behavioral warning signs. Client appears to have high levels of insight into potential triggers and actively engages in self-reflective activities. She reports wanting to write a letter to alcohol ending the relationship and describing why she is doing so. Given successful maintenance of sobriety in past 2 weeks client requests focusing more on emotion regulation skills during individual sessions. Therapist discussed specific concerns with client. Client identified improving her ability to manage increased stress and anxiety via rumination as areas of most concern. Risks/Concerns:: Client denies suicidal ideation, plan, and intent as of 01/21/18. Client shared plans to spend time with her derick and go out to the local [employer] sales this weekend which demonstrates future orientation. Client denies any urges to consume alcohol and reports maintaining sobriety since 01/07/18. Client additionally is aware of local crisis resources and is willing to utilize these if needed. Progress Toward Goals/Plan:: Client has demonstrated progress with implementing thought challenging strategies to reduce the intensity and duration of negative thoughts and urges to engage in drinking behaviors. Client has consistently completed all assigned homework and reports an increased ability to challenge distorted thinking patterns and work towards consistent application of healthy skills. Client reports increased energy and motivation in the past week, she is more actively utilizing her supports, and has successfully replaced alcohol use with healthier alternatives. Client is able to identify to consequences of drinking as well as identify warning signs and triggers that may lead to relapse. Current plan is to maintain assigned tx goals and continue focusing on emotion regulation and stress management in order to maintain stability, prevent relapse, and decrease adverse symptomology. Time Stopped:: 13:26
--- NOTE | 2018-01-22 15:17 | BH.SGPN ---
Service Group Progress Note - Session Psychotherapy Session #1 Date Open:: 01/21/18 Time Started:: 09:09 Time Stopped:: 10:15 Targeted Problem #:: 1 Type of Group:: Process - 4 participants Goal of Group:: The goal of today's group was to check-in with client's mood, stressors, and positives, review homework and introduce topic for the day. Client Response/Progress/Benefit:: Client responded well to session and was engaged throughout. She shared feeling spent but optimistic. CLient this was due to having had a stressful day er as she had driven her to [place] for his psychiatry appointment. Client indicated that she had to help calm her down as he was ruminating about the appointment and it's potential outcome. CLient noted that she had asked her what would you tell me if I were the one who was nervous and indicatd this helped to decrease his anxiety. Client shared that initially her 's nerves had caused her to become anxious as well; however, she was able to prevent herself from escalating by practicing grounding techniques via mindfulness and reminding herself If I can make it through this ten seconds, I can make it through the next ten seconds. Client displaying progress in her overall levels of awareness regarding her emotions however would benefit from ongoing tx focusing on identifying warning signs/triggers for compassion fatigue and potential skills for maintaining mental health. Eye Contact:: Good Motor Activity:: Appropriate Appearance:: Casual Speech:: Appropriate Mood:: Euthymic Affect:: Congruent Thoughts:: Linear, Logical, No evidence of hallucinations/delusions noted Staff Interventions:: Therapist used open-ended questions to elicit information about client's current stressors and mood state. Therapist was supportive by using active listening and reflection.
--- NOTE | 2018-01-22 15:44 | BH.SGPN ---
Service Group Progress Note - Session Psychotherapy Session #2 Date Open:: 01/22/18 Time Started:: 10:30 Time Stopped:: 11:20 Targeted Problem #:: 1 Type of Group:: Illness Management Goal of Group:: The goal of this session was to increase self-awareness of what is holding them back from moving towards mental wellness and discuss importance of taking action in their treatment. Client Response/Progress/Benefit:: Pt engaged and active throughout session, listened attentively to others. Pt reported she knows what skills or strategies to use, but struggles with following through on utilizing skills consistently. Pt identified negative thinking to be the biggest thing that has power over her. Pt shared her negative thinking contributes to low motivation and not wanting to use her healthy skills. Pt verbalizes wanting to take back the power. Pt shared ?even small steps are forward progress?. Pt seemed to benefit from increased self-awareness into what is contributing to stagnation. Eye Contact:: Good Motor Activity:: Appropriate Appearance:: Casual Speech:: Appropriate Mood:: Euthymic Affect:: Congruent Thoughts:: Linear, Logical, No evidence of hallucinations/delusions noted Staff Interventions:: Therapist facilitated discussion about what it means to take action in achieving mental health wellness. Therapist led activity in which clients were asked to identify the symptoms and things that they would like to take back control over. Therapist provided support by using active listening. Psychotherapy Session #3 Date Open:: 01/22/18 Time Started:: 11:30 Time Stopped:: 12:20 Targeted Problem #:: 1 Type of Group:: Functional Skills Development Goal of Group:: The goal of this session was to create a 30 day action plan that provides small goals that work towards taking action on one thing they would like to take back control over. Client Response/Progress/Benefit:: Pt contributed to discussion and listened attentively to others. Pt identified for her 30 day plan she focused on decreasing negative thinking. Pt reported it?s important to decrease her negative thoughts because it will improve her mental health and she deserves to feel better. Pt reported the first step she?s willing to make is to recognize and challenge her negative thoughts. Reported another step is to read the bible daily in the morning for 15 minutes. Shared another goal is to limit checking email from school to 3 times a week because work is a trigger to her anxiety. Pt identified the last goal is to limit her coffee intake to one cup a day. Pt seemed to benefit from identifying small goals she is willing to focus on throughout the next 30 days. Eye Contact:: Good Motor Activity:: Appropriate Appearance:: Casual Speech:: Appropriate Mood:: Euthymic Affect:: Congruent Thoughts:: Linear, Logical, No evidence of hallucinations/delusions noted Staff Interventions:: Therapist provided materials and guidance to help clients create a 30 day action plan. Therapist provided support by giving feedback and using active listening.
--- NOTE | 2018-01-25 11:01 | BH.SGPN ---
Service Group Progress Note - Session Psychotherapy Session #1 Date Open:: 01/25/18 Time Started:: 09:08 Time Stopped:: 10:00 Targeted Problem #:: 1 Type of Group:: Process Goal of Group:: The goal of today's group was to check-in with client's mood, stressors, and positives, review homework and introduce topic for the day. Client Response/Progress/Benefit:: Pt reported she had a good weekend. Pt shared she spent time with her in-laws, which sometimes doesn't go well because they don't understand mental illness. Pt reported the interaction went much better than expected because her [id number] showed interest in how client was feeling since getting help. Pt shared she was productive by completing her disability paperwork. Pt shared she was anxious prior to her psychiatry appointment because she thought her psychiatrist wouldn't be supportive, but the appointment went much better than she had expected. Pt demonstrating progress as evidenced by her using her healthy coping skills and reporting improved mood stability. Eye Contact:: Good Motor Activity:: Appropriate Appearance:: Neat Speech:: Appropriate Mood:: Euthymic Affect:: Congruent Thoughts:: Linear, Logical, No evidence of hallucinations/delusions noted Staff Interventions:: Therapist used open-ended questions to elicit information about client's current stressors and mood state. Therapist was supportive by using active listening and reflection.
--- NOTE | 2018-01-25 11:22 | BH.SGPN_ITS ---
Service Group Progress Note - Session Psychotherapy Session #1 Date Open:: 01/25/18 Time Started:: 09:08 Time Stopped:: 10:00 Targeted Problem #:: 1 Type of Group:: Process Goal of Group:: The goal of today's group was to check-in with client's mood, stressors, and positives, review homework and introduce topic for the day. Client Response/Progress/Benefit:: Pt reported she had a good weekend. Pt shared she spent time with her in-laws, which sometimes doesn't go well because they don't understand mental illness. Pt reported the interaction went much better than expected because her [id number] showed interest in how client was feeling since getting help. Pt shared she was productive by completing her disability paperwork. Pt shared she was anxious prior to her psychiatry appointment because she thought her psychiatrist wouldn't be supportive, but the appointment went much better than she had expected. Pt demonstrating progress as evidenced by her using her healthy coping skills and reporting improved mood stability. Eye Contact:: Good Motor Activity:: Appropriate Appearance:: Neat Speech:: Appropriate Mood:: Euthymic Affect:: Congruent Thoughts:: Linear, Logical, No evidence of hallucinations/delusions noted Staff Interventions:: Therapist used open-ended questions to elicit information about client's current stressors and mood state. Therapist was supportive by using active listening and reflection.
--- NOTE | 2018-01-25 13:32 | BH.SGPN_ITS ---
Service Group Progress Note - Session Psychotherapy Session #2 Date Open:: 01/25/18 6 group members Time Started:: 10:10 Time Stopped:: 11:00 Targeted Problem #:: 1 Type of Group:: Illness Management Goal of Group:: To increase understanding of a crisis and improve client?s awareness of personal warning signs before crisis. Client Response/Progress/Benefit:: Client responded well to session, providing input to discussion. Client appeared to connect with the quote sharing, ?you have to be willing to find the good in a difficult moment.? Client reported crisis could be losing a job, a loved, one or a health issue. 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 Client reported crisis to her feels like ?I?m a blob? and shared when she is in crisis she goes straight to survival mode. Client shared she went into crisis mode at work which resulted in client needing to be escorted out of the building. Client reflected on her progress since then sharing, ?I know how to manage my stress better now and remove toxic things in my life.? Client appeared to benefit from increasing awareness of crisis and her personal warning signs. Progress noted in client's improved mood and application on coping skills, but can continue from maintenance. Eye Contact:: Good Motor Activity:: Appropriate Appearance:: Neat Speech:: Appropriate Mood:: Euthymic Affect:: Constricted Thoughts:: Linear, No evidence of hallucinations/delusions noted Staff Interventions:: Therapist facilitated group discussion about defining a crisis and specifying various events that are considered a crisis. Therapist led the group in discussion about identifying personal warning signs before a crisis and importance of being aware of those signs. Therapist provided support by using active listening and providing feedback. Psychotherapy Session #3 Date Open:: 01/25/18 - 6 group members Time Started:: 10:10 Time Stopped:: 11:00 Targeted Problem #:: 1 Type of Group:: Functional Skills Development Goal of Group:: To increase awareness of warning signs before a crisis and identify interventions/coping strategies that would help clients proactively manage potential crises. Client Response/Progress/Benefit:: Client responded well to session, active participant. Client identified her personal warning signs before crisis as loss of interest, difficulty concentrating, and uncontrollable worries. Client helped the group develop strategies to cope with the different stages of the crisis cycle. Client shared the crisis cycle helped client increase awareness of her warning signs and what coping skills would be effective in that moment. Client shared a deep breathing technique with peers and reported liking a mantra provided by a peer, ?hold on pain ends.? Client created a crisis kit selecting items that remind client on her healthy coping skills, positive supports, and grounding strategies. Client reported she also plans to talk with her supports and tell them what she needs during crisis. Client appeared to benefit from learning about the crisis cycle and identifying coping skills to prevent and manage crisis. Client to continue IOP to promote gains and increase mood stability. Eye Contact:: Good Motor Activity:: Appropriate Appearance:: Neat Speech:: Appropriate Mood:: Euthymic Affect:: Constricted Thoughts:: Linear, No evidence of hallucinations/delusions noted Staff Interventions:: Therapist led the group in discussion about identifying personal warning signs before a crisis and importance of being aware of those signs. Therapist provided the group with various types of items and asked each group member to select five items that represent something that would be helpful in managing their warning signs of a crisis. Therapist facilitated group processing of the crisis emergency kits each group member created. Therapist used open-ended questions to encourage elaboration of each item chosen for their kit. Therapist helped clients connect how the crisis emergency kit could help be a crisis prevention tool.
== END 2018-01-25 23:59 ==
LOC: BHIOP 09:00
PROVIDERS: Visit Provider Psychiatry & Neurology Psychiatry
DX: F33.2 Major depressive disorder, recurrent severe without psychotic features (principal); F41.9 Anxiety disorder, unspecified; F10.20 Alcohol dependence, uncomplicated; F17.210 Nicotine dependence, cigarettes, uncomplicated
CPT/HCPCS: H0035; 90837; 90853

== ENCOUNTER 2018-01-26 09:00 | Outpatient (RCR) | payer BC, SELFPAY ==
--- NOTE | 2018-01-26 10:30 | BH.SGPN ---
Service Group Progress Note - Session Psychotherapy Session #1 Date Open:: 18 - 6 group members Time Started:: 09:05 Time Stopped:: 10:05 Targeted Problem #:: 1 Type of Group:: Process Goal of Group:: The goal of today's group was to check-in with client's mood, stressors, and positives, review homework and introduce topic for the day. Client Response/Progress/Benefit:: Client responded well to session, active participant. Client reports feeling very content today as she has been pushing herself to try something new each month and continues to maintain sobriety. Client stated last night she stepped out of her comfort zone and tried a crocheting class, but almost did not go due to negative thinking and what ifs. Client reported I was able to challenge all the thoughts and do this for myself. Client stated crocheting was not for her, but she was proud of herself for trying. Client reported she would not have been able to try new things a month ago, which demonstrates progress. Client appeared to benefit from reflecting on progress and receiving supportive statements. Client to continue IOP to promote mood stability and emotional regulation. Eye Contact:: Good Motor Activity:: Appropriate Appearance:: Neat Speech:: Appropriate Mood:: Euthymic Affect:: Congruent Thoughts:: Linear, No evidence of hallucinations/delusions noted Staff Interventions:: Therapist used open-ended questions to elicit information about client's current stressors and mood state. Therapist was supportive by using active listening and reflection
--- NOTE | 2018-01-28 09:48 | BH.SGPN ---
Service Group Progress Note - Session Psychotherapy Session #1 Date Open:: 01/28/18 Time Started:: 09:10 Time Stopped:: 10:00 Type of Group:: Process - 6 group members Goal of Group:: The goal of today's group was to check-in with client's mood, stressors, and positives, and review homework. Client Response/Progress/Benefit:: Active participant in group discussion. Provided appropriate feedback. Emotion for today is ready. Shared that yesterday was her first weekday w/o IOP. States that she was nervous however beleives that she managed her emotions and day well. She has been 21 days sober and spent yesterday briefly at [facility] and completing tasks at home. Reports that she was productive and while she used distraction skills she also was able to use internal coping skills. Group praised pt. Benefited from support and praise. Progress noted as she is using skills learned outside of IOP. Will continue in IOP to maintain safety, increase daily functioning, and prevent decompensation. Eye Contact:: Good Motor Activity:: Appropriate Appearance:: Casual Speech:: Appropriate Mood:: Euthymic Affect:: Full Thoughts:: Linear, Logical, No evidence of hallucinations/delusions noted Staff Interventions:: Therapist used open-ended questions to elicit information about client's current stressors and mood state. Therapist was supportive by using active listening and reflection Psychotherapy Session #2 Date Open:: 01/28/18 Time Started:: 10:20 Time Stopped:: 11:10 Type of Group:: Illness Management - 7 group members Goal of Group:: To increase understanding and awareness of emotions connected to change and the impact those emotions can have on change. Client Response/Progress/Benefit:: Active participant in group activity and discussion. Worked with the rest of the group to identify common emotions related to change which include anxiety, fear, panic, lost, torn, enthusiastic, and others. Reports change is part of my life in regards to career change and sobriety. Benefited from identifying and increasing awareness of the emotions related to change and understanding the stages of change. Eye Contact:: Good Motor Activity:: Appropriate Appearance:: Neat Speech:: Pressured Mood:: Euthymic Affect:: Full Thoughts:: Linear, Logical, No evidence of hallucinations/delusions noted Staff Interventions:: Therapist facilitated group discussion about change. Therapist led the group in an activity in which the activity was utilized as a tool to increase clients awareness of emotions connected with change. Therapist led the processing of how each emotion was associated with change. Therapist also educated clients on the stages of change and discussed emotions associated with each stage. Therapist was supportive by providing feedback and using reflective listening.
--- NOTE | 2018-01-28 16:40 | BH.SGPN_ITS ---
Service Group Progress Note - Session Psychotherapy Session #3 Date Open:: 01/28/18 Time Started:: 11:23 Time Stopped:: 12:20 Targeted Problem #:: 1 Type of Group:: Functional Skills Development - 6 participants Goal of Group:: To identify the challenges associated with making change and identify positive outcomes that have resulted from changes made in past. Another goal was to identify one change they are willing to make this week. Client Response/Progress/Benefit:: Client rerponded well to group and indicated connecting well with the ADKAR (Awareness, Desire, Knowledge, Ability, and Reinforcement) approach to implementing change on a personal level. Client discussed that it can be difficult to identify the positives in changes; however , she is beginning to improve upon her ability to challenge the negative thoughts she has associated with implementing change and begin to view change as a positive. Client indicated wanting to begin viewing her transition in career as a positive step forward in managing her mental health symptoms. She discussed feeling as though she has the awareness and desire to make this change but could benefit from furthering her knowledge of the available possibilities as well as what she would be interested in pursuing. Client indicated that her first step towards embracing this change is to allow herself to enjoy the process of identifying new areas in which she may be passionate as well as challenge herself to remain patient with the process. Client benefited from assessing and reviewing her readiness to change. She made progress in her ability to identify and challenge the potential barriers to implementing this change. Client recommended continued work on challenging unrealistic expectations and use of minimization. Eye Contact:: Good Motor Activity:: Appropriate Appearance:: Neat Speech:: Appropriate Mood:: Euthymic Affect:: Full Thoughts:: Linear, Logical, No evidence of hallucinations/delusions noted Staff Interventions:: Therapist led group in an activity to help group members recognize the challenges associated with change. Therapist utilized activity as a tool to identify ways to manage changes and adapt to the challenges that ensue. Therapist facilitated group discussion about positive outcomes from change. Therapist helped clients explore changes they are willing to make this week and elicited discussion on the pros and cons of making that change.
--- NOTE | 2018-01-29 09:51 | BH.SGPN_ITS ---
Service Group Progress Note - Session Psychotherapy Session #1 Date Open:: 01/28/18 Time Started:: 09:10 Time Stopped:: 10:00 Type of Group:: Process - 6 group members Goal of Group:: The goal of today's group was to check-in with client's mood, stressors, and positives, and review homework. Client Response/Progress/Benefit:: Active participant in group discussion. Provided appropriate feedback. Emotion for today is ready. Shared that yesterday was her first weekday w/o IOP. States that she was nervous however beleives that she managed her emotions and day well. She has been 21 days sober and spent yesterday briefly at [facility] and completing tasks at home. Reports that she was productive and while she used distraction skills she also was able to use internal coping skills. Group praised pt. Benefited from support and praise. Progress noted as she is using skills learned outside of IOP. Will continue in IOP to maintain safety, increase daily functioning, and prevent decompensation. Eye Contact:: Good Motor Activity:: Appropriate Appearance:: Casual Speech:: Appropriate Mood:: Euthymic Affect:: Full Thoughts:: Linear, Logical, No evidence of hallucinations/delusions noted Staff Interventions:: Therapist used open-ended questions to elicit information about client's current stressors and mood state. Therapist was supportive by using active listening and reflection Psychotherapy Session #2 Date Open:: 01/28/18 Time Started:: 10:20 Time Stopped:: 11:10 Type of Group:: Illness Management - 7 group members Goal of Group:: To increase understanding and awareness of emotions connected to change and the impact those emotions can have on change. Client Response/Progress/Benefit:: Active participant in group activity and discussion. Worked with the rest of the group to identify common emotions related to change which include anxiety, fear, panic, lost, torn, enthusiastic, and others. Reports change is part of my life in regards to career change and sobriety. Benefited from identifying and increasing awareness of the emotions related to change and understanding the stages of change. Eye Contact:: Good Motor Activity:: Appropriate Appearance:: Neat Speech:: Pressured Mood:: Euthymic Affect:: Full Thoughts:: Linear, Logical, No evidence of hallucinations/delusions noted Staff Interventions:: Therapist facilitated group discussion about change. Therapist led the group in an activity in which the activity was utilized as a tool to increase client?s awareness of emotions connected with change. Therapist led the processing of how each emotion was associated with change. Therapist also educated clients on the stages of change and discussed emotions associated with each stage. Therapist was supportive by providing feedback and using reflective listening.
--- NOTE | 2018-01-29 10:52 | BH.SGPN ---
Service Group Progress Note - Session Psychotherapy Session #1 Date Open:: 18 - 7 participants Time Started:: 09:05 Time Stopped:: 10:10 Targeted Problem #:: 1 Type of Group:: Process Goal of Group:: The goal of today's group was to check-in with client's mood, stressors, and positives, review homework and introduce topic for the day. Client Response/Progress/Benefit:: Client responded well to session, active participant. Client reports feeling ?grateful? today as she has been exploring additional social supports for mental health at the [facility]. Client shared she is proud of herself for stepping out of her comfort zone and trying new things, client also wants to start volunteering to fill her time now that she will not be working. Client appeared to benefit from reflecting on progress she has made so far in the program. Client seems to be progressing as shown by her reduced depressive symptoms and increased self-love, but continues to struggle with negative thoughts and unrealistic expectations. Client to continue IOP to promote mood stability and reduce negative thinking. Eye Contact:: Good Motor Activity:: Appropriate Appearance:: Neat Speech:: Appropriate Mood:: Euthymic Affect:: Full Thoughts:: Linear, No evidence of hallucinations/delusions noted Staff Interventions:: Therapist used open-ended questions to elicit information about client's current stressors and mood state. Therapist was supportive by using active listening and reflection.
--- NOTE | 2018-01-29 15:34 | BH.MDN_ITS ---
Multi-Disciplinary Note - Note 30-min Individual Time Started:: 08:57 Date: 01/28/18 Purpose of session/treatment goals addressed:: The purpose of this session was to review Client current progress in maintaining sobriety as well as implementationof healthy coping and thought challenging skills that aide in recution of mental health symptom. Another purpose was to work will CLient on identifying and challenging distorted thinking related to unrealistic expectations. Eye Contact:: Good Motor Activity:: Appropriate Appearance:: Neat Speech:: Appropriate Mood:: Euthymic, Anxious Affect:: Full Thoughts:: Linear, Logical, No evidence of hallucinations/delusions noted Staff Interventions:: Therapist asked open-ended and furthering questions to assess Client current symptoms and progress. Used reflective listening and supportive feedback to discuss with Client current concerns and normalize client fears regarding maintaining prgress. Created discrepancy to challenge Client expectations of self and worked to aid in identifying more realistic expectations. Client Response:: Client willing to meet with this therapist for session prior to group. She discussed feeling as though overall she is continuing to notice progress. Client went on to explain that she has been trying to actively apply the skills learned in individual and group session to her daily life and noted that she particularly connected with an article this therapist had provided reviewing compassion fatigue. Client noted that she had not previously noticed how much her 's anxiety had been wearing on her. She shared that she had discussed the article with her daughter who agreed that client tends to lizeth on eneryone else's emotions. Client reflected that this may have been why she has been feeling somewhat more tired than usual, as Client indicates she has been trying to keep her 's anxiety at bay. Client did well to review with therapist things she may do to refuel in times that she recognizes herself becoming impacted by other people's emotions. Client responded well to example positve self-lizeth and thought challenge statements reviewed; however, continues to struggle in identifying specific thought challenging statements in the moment. CLient went on to discuss struggling to remain positive at various points throughout the previous day. She reflected upon beliefs that her mood had been impacted by the lack of structure in the day and she began to feel guilt associated with having free time. Client reports being able to challenge these thoughts upon gaining awareness of them. She and therapist reviewed importance of client establishing a set schedule or routine encorporating self- actualizing activities to begin to allow client to adjust to her post employment lifestyle. Client discussed wanting to look into volunteering with animals or veterans and is agreeable to researching 2-3 potential volunteer opportunities in her area. Risks/Concerns:: Client denies any active Suicidal Ideation, plan, or intent as of this date, 01/29/18. She indicates high levels of motivation to maintain gains made and is future oriented, expressing plans to go out for a drive with her . Client reports continued sobriety since admission to program and identifies her family and herself as main motivations. She indicates ability to maintain safety, is aware of crisis resources available, and is willing to utilize these services should she need to. Progress Toward Goals/Plan:: Progress made. CLient continues to do well to incorporate the treatment content discussed in both group and individual sessions. She is doing well to openly communicate with her supports, however struggles with taking on other's emotions at times. CLient is motivated to continue to make changes in order to further progress with managing mental health symptoms. CLient appears to struggle with minimization and lack of awareness of her own warning signs related to mental health symptoms. She would benefit from continued IOP tx to increase self-awareness and ability to challenge her own thoughts. Client current plan is to maintain current tx goals with particular focus on increasing consistency of internal coping skills used. Time Stopped:: 09:17
--- NOTE | 2018-02-01 15:20 | BH.SGPN ---
Service Group Progress Note - Session Psychotherapy Session #1 Date Open:: 02/01/18 Time Started:: 09:09 Time Stopped:: 10:19 Targeted Problem #:: 1 Type of Group:: Process - 7 participants Goal of Group:: The goal of today's group was to check-in with client's mood, stressors, and positives, review homework and introduce topic for the day. Client Response/Progress/Benefit:: Client responded well to session and remained mostly engaged throughout; however, appeared somewhat more withdrawn than usual in group. Client discussed feeling as though she had been all over the place over the weekend. She went on to discuss accomplishing a lot of tasks and was really productive but felt guilty as she had not completed aof her mental health homework. Client attributed this to struggling to adjust to the newfound free time she has now that she is not working. Client noted getting supplies to begin a garden and buying things for group which had both been activities she would enjoy continuing. Client went on to discuss experiencing a 'major urge to drink' while at the grocery store with her over the weekend. She indicated no specific thoughts about the drinking but felt the temptation to purchase a bottle. When asked what had prevented her from doing so, Client indicated that she has made too much progress and come too far to relapse now. Client benefited from working with the group to identify successfully combating the urge to drink as a means of complating mental health homework. Client continues to make progress in her ability to consistently apply the skills learned in group and individual sessions to her daily life. Client recommended additional work on implementing self care strategies outside of distractions. Eye Contact:: Good Motor Activity:: Appropriate Appearance:: Neat Speech:: Appropriate Mood:: Euthymic Affect:: Full Thoughts:: Linear, Logical, No evidence of hallucinations/delusions noted Staff Interventions:: Therapist used open-ended questions to elicit information about client's current stressors and mood state. Therapist was supportive by using active listening and reflection.
--- NOTE | 2018-02-02 10:38 | BH.COMM ---
Communication Note - Communication with Client Communication Note: This therapist spoke with Client outpatient provider, Jolene Ramachandran of [facility], for coordination of care purposes and to provide updates on Client treatment progress. Reviewed Client progress in the IOP program, potential discharge recommendations, and onging areas of concern.
--- NOTE | 2018-02-03 10:54 | BH.SGPN ---
Service Group Progress Note - Session Psychotherapy Session #1 Date Open:: 02/03/18 Time Started:: 09:10 Time Stopped:: 10:00 Type of Group:: Process - 4 group members Goal of Group:: The goal of today's group was to check-in with client's mood, stressors, and positives, and review homework. Behaviors/Verbalizations/Mental Status:: Pt was an active participant in group. Emotion for today is anxious. Shared with the group that she kept busy yesterday. Pt started a garden for herself. Discussed that she realizes keeping active is important for her MH however made it clear she was not just distracting. Also shared that she has a great deal of stress and anxiety about running into co-workers. Reports that she avoids certain locations and going out at certain times to avoid having to explain where she has been. Group provided feedback and some suggestions to help her answer those questions. She agreed that she does not want to live in fear and avoid activities. Progress noted as she continues to use skills outside of group. Denies any overwhelming emotions. Will continue in IOP to maintain gains and improve daily functioning. Eye Contact:: Good Motor Activity:: Appropriate Appearance:: Casual Speech:: Appropriate Mood:: Anxious Affect:: Congruent Thoughts:: Linear, Logical, No evidence of hallucinations/delusions noted Staff Interventions:: Therapist used open-ended questions to elicit information about client's current stressors and mood state. Therapist was supportive by using active listening and reflection.
--- NOTE | 2018-02-03 15:32 | BH.SGPN_ITS ---
Service Group Progress Note - Session Psychotherapy Session #2 Date Open:: 02/03/18 Time Started:: 10:11 Time Stopped:: 11:02 Targeted Problem #:: 1 Type of Group:: Illness Management - 6 participants Goal of Group:: The goal of group was to increase understanding of the benefits social support provides in mental health wellness. Another goal was to increase self-awareness of the barriers that prevent client to seeking support or utilizing the support they have. Client Response/Progress/Benefit:: Client responded well to session and was an actively engaged participant throughout. She did well to work withing fellow participants in order to complete the challenge each small group was given in which participants were forced to rely on one another in order to succeed in accomplishing the task. Client did well to identify connections between the activity and difficulties in reaching out to supports in her own life. Client indicated that lack of communication, fear of failure, and fear of looking weak have prevented her from reaching out to supports in the past. She identified that this negatively contributed to her mental health as client often takes on more than she can handle and then becomes overwhelmed and unable to manage. Client benefited from challenging herself to be vulnerable in the activity by volunteering to close her eyes as this provided client with insights into her comfort levels. She continues to make progress in her ability to apply concepts to daily life. CLient recommended continued IOP to further consistent application of skills and improve identification of distorted thinking patterns or unhelpful maintenance behaviors. Eye Contact:: Good Motor Activity:: Appropriate Appearance:: Casual Speech:: Appropriate Mood:: Euthymic, Anxious Affect:: Full Thoughts:: Linear, Logical, No evidence of hallucinations/delusions noted Staff Interventions:: Therapist led a group discussion about importance of social supports. Therapist facilitated an activity that required the group members to utilize support from each other. Therapist utilized the activity as a tool to connect the importance of accepting social support. Therapist provided support through reflective listening and giving feedback. Psychotherapy Session #3 Date Open:: 02/03/18 Time Started:: 11:14 Time Stopped:: 12:04 Targeted Problem #:: 1 Type of Group:: Functional Skills Development - 6 partipipants Goal of Group:: The goal of group was to increase understanding of the different types of social support. Another goal was to identify one type of support the client?s desire and establish one small step towards achieving that support. Client Response/Progress/Benefit:: Client again responded well to session ad was actively engaged in the group. She worked with fellow participants to discuss the benefits of social supports as well as potential strategies for improving upon our sicual support systems. CLient discussed the importance of having awareness regarding what supports are available as well as the roles our supports can play in promoting mental health. CLient benefitted from the conversation reviewing ways to communicate needs with supports and she discussed at times struggling with expecting her supports to know how to help without telling them what she might need. Client progress in willingness to address areas of struggle and is recommended further focus on decreasing use of minimization and deflection when confronted with stressors. Eye Contact:: Good Motor Activity:: Appropriate Appearance:: Casual Speech:: Appropriate Mood:: Euthymic Affect:: Congruent Thoughts:: Linear, Logical, No evidence of hallucinations/delusions noted Staff Interventions:: Therapist facilitated group discussion on the different types of social support and importance of each type of support. A social support worksheet, was utilized to give clients direction in identifying which type of support they desired, how it will help, and identifying the first small step towards the desired support. Therapist provided homework for each group member to try and accomplish the one small step each group member identified on the worksheet.
--- NOTE | 2018-02-04 14:21 | BH.MDN ---
Multi-Disciplinary Note - Note 30-min Individual Time Started:: 12:32 Date: 02/04/18 Purpose of session/treatment goals addressed:: The purpose of this session was to assess current symptoms, use of healthy coping mechanisms, and treatment goal progress. Another purpose was to address client concerns regarding increased urges to consume alcohol during the day and work with client to identify triggers and stragegies for managing urges to drink. Eye Contact:: Good Motor Activity:: Appropriate Appearance:: Neat Speech:: Appropriate Mood:: Euthymic, Anxious Affect:: Congruent Thoughts:: Linear, Logical, No evidence of hallucinations/delusions noted Staff Interventions:: Asked open-ended questions to gather questions regarding client perception of current symptom management and progress in treatment. Provided psychoeducation on alcohol recovery process and relapse/urges to drink as part of the process. Worked with client to identify recent drinking triggers and problem solve strategies to refrain from engaging in such. Therapist used strengths perspective to empower client on positives and progress. Therapist and client reviewed healthy ways to challenge distorted thinking patterns. Client Response:: Client receptive of meeting with this therapist and well engaged throughout session. She discussed continued progress in her ability to manage mental health symptoms, specifically anxiety and depressive symptoms. 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 She worked with therapist on role playing potential scenarios and discussing that client does not have to share about being in treatment is she does not feel comfortable in doing so. Client went on to discuss that recently she has been experiencing increased urges to consume alcohol during the day. Client struggle at first to identify potential triggers for the changes in desire to drink; however upon futher exploration client able to. She indicated that the warm weather is likely a trigger as she and her would often sit outside and have a drink or go for a drive in the [place] and stop for a cocktail. Client worked with therapist to discuss strategies for managing triggers and potential alternative activites she can engage in. CLient expressed that she and her could still go for a ride in the convert[place] and not stop or go get a lemonade or something else instead. Client connected with the concept of changing her routine as a means for eliminating some of the triggers commonly associated with old patterns of behavior. CLient shared that could also remind herself of the motivations she has previously identified for maintaining sobriety and consequences relapsing with have on herself and her progress made. Client additionally discussed that her has been a major positive support in encouraging client in mainaining the progress she has made as he will tell client no if she tries to justify use of unhealthy means for coping. Client shared that her has additionally expressed feeling inspired by client and is feeling an increased desire to begin changing some of his unhealthy behaviors as well. Therapist introduced the DBT group that is starting at [facility] and encouraged client to attend as this would be a good transision following discharge from IOP program. Risks/Concerns:: No risks or concerns at this time. CLient denies active suicidal ideation, plan, or intent as of 02/04/18. Progress Toward Goals/Plan:: Client continues to make steady progress towards treatment goals. She indicates continued decrease in symptoms of anxiety and depression and attributes this to ongoing implementation of healthy skills learned while in the IOP program. Client did however express increased concern regarding recent influx in urges to drink throughout the past week. She expressed that this has led to increased anxiety and self-doubt. She did well to work with therapist throughout session on identifying means for managing these urges and continues to make progress with challenging distorted thinking patterns associated. Client continues to successfully completed all treatment commendations and homework provided. She struggles with second guessing herself and expressed fears associated with maintaining gains post discharge. Client recommended continued IOP to maintain stability, continue to work with client on challenging use of thought distortions, and establish a concrete discharge plan. Time Stopped:: 13:05
--- NOTE | 2018-02-04 14:54 | BH.SGPN_ITS ---
Service Group Progress Note - Session Psychotherapy Session #2 Date Open:: 02/04/18 - 6 group members Time Started:: 10:23 Time Stopped:: 11:20 Targeted Problem #:: 1 Type of Group:: Illness Management Goal of Group:: To identify within self what is keeping client trapped from achieving better quality of life. Client Response/Progress/Benefit:: Client responded well to session, active participant. Client connected with the topic stating, I am a negative maintenance cycle fontana. Client identified various stressors in life that keep a person stuck such as depression, stress, unhealthy coping skills, and negative thinking. Client stated thoughts can stop the cycle and behaviors can stop the cycle. Client identified the negative thoughts keeping her stuck such as I am an educational failure, nothing will get better, I have failed. Client appeared to benefit from recognizing how these negative thoughts has kept client stuck. Progress as shown by client's report of improved mood stability, but can continue to benefit from challenging mistaken beliefs of. self and her career. Eye Contact:: Good Motor Activity:: Appropriate Appearance:: Neat Speech:: Appropriate Mood:: Depressed Affect:: Constricted Thoughts:: Linear, No evidence of hallucinations/delusions noted Staff Interventions:: Therapist facilitated discussion about what is keeping client?s stuck from moving toward mental wellness. Therapist assisted clients in connecting how thoughts can contribute to keeping clients stuck. Therapist led discussion about barriers clients face from making changes to help one move forward. Therapist provided support by using active listening and giving feedback to others. Psychotherapy Session #3 Date Open:: 02/04/18 - 5 group members Time Started:: 11:30 Time Stopped:: 12:27 Targeted Problem #:: 1 Type of Group:: Functional Skills Development Goal of Group:: To identify what client can do to release self from those things that are trapping them to find more peace and quality in everyday life. Client Response/Progress/Benefit:: Client responded well to session, open to feedback from peers. Client selected I am an educational failure as the thoug ht keeping client most stuck. Client shared when she thinks this client isolates, avoids talking to others, and is hard on herself. Client stated this creates negative self-talk and low self-esteem. Client reported she struggled with challenging the thought as in hey eyes it was realistic. However, with group support, client recognized I had a great career to be proud of. Client shared when she reframes this thought it improves her mood and reduces shame and guilt. Client appeared to benefit from reframing unrealistic thoughts and learning various strategies to challenge cognitive distortions. Client to continue IOP to promote mood stability and coping skills consistency. Eye Contact:: Good Motor Activity:: Appropriate Appearance:: Neat Speech:: Appropriate Mood:: Depressed Affect:: Congruent Thoughts:: Linear, No evidence of hallucinations/delusions noted Staff Interventions:: Therapist used examples of maintenance cycles to help clients gain awareness of how negative thinking is keeping clients stuck. Therapist facilitated discussion about different strategies for challenging negative thoughts, assisting clients in connecting how the strategies could benefit them. Therapist provided clients with homework to focus on one thing that is keeping them stuck and identify small steps to start moving towards mental wellness.
--- NOTE | 2018-02-08 10:28 | BH.SGPN ---
Service Group Progress Note - Session Psychotherapy Session #1 Date Open:: 02/08/18 - 6 participants Time Started:: 09:03 Time Stopped:: 10:10 Targeted Problem #:: 1 Type of Group:: Process Goal of Group:: The goal of today's group was to check-in with client's mood, stressors, and positives, review homework and introduce topic for the day. Client Response/Progress/Benefit:: Client responded well to session, providing good insight to discussion. Client reports feeling proud today as she had urges to drink this weekend, but was successful in distracting herself which allowed client to maintain sobriety. Client reported she has been sober for over a month, but recognizes the warmer weather increases her urges to drink. Client receptive to group feedback and support on how to stay motivated. Client stated she is starting a DBT group tonight at her outpatient therapy provider and is looking forward to it. Client appeared to benefit from receiving positive feedback and support from the group. Progress noted in client's maintained sobriety and improved mood stability. Client to continue IOP to promote gains and reduce negative thinking. Eye Contact:: Fair Motor Activity:: Appropriate Appearance:: Neat Speech:: Appropriate Mood:: Euthymic Affect:: Congruent Thoughts:: Linear, No evidence of hallucinations/delusions noted Staff Interventions:: Therapist used open-ended questions to elicit information about client's current stressors and mood state. Therapist was supportive by using active listening and reflection.
--- NOTE | 2018-02-08 13:20 | BH.SGPN ---
Service Group Progress Note - Session Psychotherapy Session #2 Date Open:: 02/08/18 Time Started:: 10: Time Stopped:: 11:22 Targeted Problem #:: 1 Type of Group:: Illness Management - 6 participants Goal of Group:: To increase understanding of the impact viewing situations as impossible can have on our mental health. Client Response/Progress/Benefit:: Client actively engaged in both the activity and discussion portions of session. Client indicated connecting well with the topic of overcoming the impossible and shared that at times she does feel that situations look impossible before I truly look at them and break them into baby steps. Client discussed with fellow participants ways in which one's mindset impacts mental health and ability to need to make progress. She was an active participant in the activity portion and did well to make connections between reactions to the seemingly impossible task presented and how client response to difficult situations in her own life. Client indicated not realizing that sometimes she makes things harder on herself and shared wanting to continue to challenge herself and her approach to stressful situations. Client benefited from reflecting upon her own approach to what seems impossible during the day and identifying how this manifests in daily life. She continues to make progress in internalizing treatment concepts and actively challenging distorted thinking patterns. Client would benefit from continued IOP to further improve consistency of use of healthy coping skills as well as increasing client ability to utilize skills on her own. Eye Contact:: Good Motor Activity:: Appropriate Appearance:: Casual Speech:: Appropriate Mood:: Euthymic Affect:: Full Thoughts:: Linear, Logical, No evidence of hallucinations/delusions noted Staff Interventions:: Therapist facilitated discussion about what it means to overcome what seems impossible. Therapist led group in an activity that would initially seem impossible to complete, but once group members looked at the problem in a different way they would be able to see alternative solutions. Therapist utilized the activity as a tool to discuss overcoming those situations that seem impossible to get through. Psychotherapy Session #3 Date Open:: 02/08/18 Time Started:: 10: Time Stopped:: 11:22 Targeted Problem #:: 1 Type of Group:: Functional Skills Development - 6 participants Goal of Group:: To identify personal barriers that get in the way of accomplishing tasks and identify internal and external resources to help overcome difficult situations. Client Response/Progress/Benefit:: Client again did well to remain actively engaged in session. She worked with the group to define internal and external barriers that may impact one's mental health. Client was willing to discuss within the group her own personal barriers and indicated that self-doubt, taking on others emotions, and fear of failure as major barriers. Client benefitted from group discussion regarding potential supports to overcoming these barriers and redefine the impossible mindset. CLient shared plans to begin a DBT support group with [facility] which she is hopeful will help to maintain progress she has made in the IOP program. Client recommended continued IOP to continue to work of managing stress and urges to drink as well as consistent implementation of healthy skills identified. Eye Contact:: Good Motor Activity:: Appropriate Appearance:: Casual Speech:: Appropriate Mood:: Euthymic Affect:: Congruent Thoughts:: Linear, Logical, No evidence of hallucinations/delusions noted Staff Interventions:: Therapist facilitated discussion about internal and external resources and helped clients connect various internal resources they use. Therapist provided group members with a handout that gave information about various external resources the clients could utilize to get support. Therapist gave clients a worksheet in which they were asked to identify several barriers that get in their way to overcoming difficult situations. They also were asked to identify several internal and external resources they could use when needed.
--- NOTE | 2018-02-11 10:31 | BH.SGPN ---
Service Group Progress Note - Session Psychotherapy Session #1 Date Open:: 02/11/18 - 4 group members Time Started:: 09:05 Time Stopped:: 10:10 Targeted Problem #:: 1 Type of Group:: Process Goal of Group:: The goal of today's group was to check-in with client's mood, stressors, and positives, review homework and introduce topic for the day. Client Response/Progress/Benefit:: Client responded well to session, providing supportive statements to peers. Client reports feeling anxious but eager today as she is getting ready to discharge from IOP. Client stated, she will miss the support from staff and peers, but recognizes she has confidence in her ability to apply the skills. Client stated she has been spending more time with family, being mindful, challenging negative thoughts, and communicating with her children. 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 Client appeared to benefit from reflecting on progress and receiving support from the group. Client to continue IOP to promote mood stability and coping skill maintenance. Eye Contact:: Good Motor Activity:: Appropriate Appearance:: Neat Speech:: Appropriate Mood:: Euthymic Affect:: Congruent Thoughts:: Linear, No evidence of hallucinations/delusions noted Staff Interventions:: Therapist used open-ended questions to elicit information about client's current stressors and mood state. Therapist was supportive by using active listening and reflection.
--- NOTE | 2018-02-11 15:11 | BH.MDN ---
Multi-Disciplinary Note - Note 45-min Individual Time Started:: 12:26 Date: 02/11/18 Time Stopped:: 13:01
--- NOTE | 2018-02-11 17:03 | BH.SGPN_ITS ---
Service Group Progress Note - Session Psychotherapy Session #2 Date Open:: 02/11/18 Time Started:: 10:21 Time Stopped:: 11:15 Targeted Problem #:: 1 Type of Group:: Illness Management - 4 participants Goal of Group:: To increase understanding of self-esteem and the impact it can have on mental health. Another goal was to identify what factors impact self- esteem levels and what ways self-talk may be negatively impacting mental health and self-esteem levels. Client Response/Progress/Benefit:: Client was an active participant and did well to engage in the discussion taking place throughout group. Client indicated connecting well with the topic of self-esteem and particularly the various factors impacting her self-esteem. CLient indicated that often taking on others emotions impacts her ability to take time for self-care which inadvertently impacts self-esteem. Client worked with fellow participants to discuss the connections between negative self talk and self-esteem levels as well as what implications this may have on one's mental health. Client benefited from reflecting upon how much more positive her self-talk statements are now in comparission to when she first began IOP program. CLient indicated that felt good looking at the messages sge finds herself saying now such as you got this and I'm doing my best. CLient showing progress in her ability to consistently apply heathy coping skills and challenge negative or distorted thinking. Recommended ongoing IOP to maintain stability and treatment progress as well as continue to consistently apply skills learned. Eye Contact:: Good Motor Activity:: Appropriate Appearance:: Casual Speech:: Appropriate Mood:: Euthymic Affect:: Congruent Thoughts:: Linear, Logical, No evidence of hallucinations/delusions noted Staff Interventions:: Therapist facilitated group discussion about defining self -confidence and eliciting what clients are confident about. Therapist helped group members make connections between their own self-talk messages and the impacts can have on mental health and self-esteem levels. Therapist provided each group member with a handout in which members further explored personal self -talk statements and led the group in processing each statement. Therapist provided support by using active listening. Psychotherapy Session #3 Date Open:: 02/11/18 Time Started:: 11:27 Time Stopped:: 12:22 Targeted Problem #:: 1 Type of Group:: Functional Skills Development - 4 participants Goal of Group:: To increase self-awareness of view of self and identify how view impacts mental health functioning. Another purpose was to identify strategies for challenging negative self-talk and increasing awareness and understanding of personal rights Client Response/Progress/Benefit:: Client again remained actively engaged in group discussion. She worked with fellow participants to further process impacts of negative self-talk on mental health and discussed often struggling with positive self talk at first due to feeling uncomfortable or not believing it would help. CLient took part in the activity personal bill of rights and processed each personal bill of right statement with the group. Client shared struggling with the statement I have the right to say no and I have the right not to be responsible for others' behaviors, actions, feelings, or problems.. She benefited from reflecting upon how her difficulties with accepting that she has the right not to take responsibility for others feelings were the major contributing factors leading to client admission to IOP due to its impact on her anxiety and depression. Client displaying progress as evidenced by her ability to really identify thought challenging strategies and reframe negative self talk into more positive statements. Client recommended continued IOP in order to further improve consistency of healthy skill application and continued to challenge client on self-doubt statements. Eye Contact:: Good Motor Activity:: Appropriate Appearance:: Casual Speech:: Appropriate Mood:: Euthymic Affect:: Congruent Thoughts:: Linear, Logical, No evidence of hallucinations/delusions noted Staff Interventions:: Therapist facilitated a discussion regarding consequences of not challenging negative self-talk and aided participants in identifying strategies to challenge and replace negative self-talk messages. Therapist provided a Personal Bill of Rights handout and worked with the group process each statement and identify ways in which these statements could be used to promote positive self-talk and improve overall self-esteem levels.
--- NOTE | 2018-02-12 10:21 | BH.DR.ITP ---
Initial Treatment Plan - Patient Information Visit Information: ADMISSION DATE: EXPECTED LOS: 4-6 weeks Diagnoses:: Major depressive disorder F 33.2 - Problems/Symptoms Problem #1:: Depression Symptom:: Sad mood, anhedonia, decreased energy, recent passive thoughts of , biologic disruption of sleep and appetite Problem #2:: anxiety Symptom:: Rumination, panic
--- NOTE | 2018-02-15 11:06 | BH.TPR ---
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 Anxiety unspecified. Rule out PTSD. Alcohol use disorder moderate. Nicotine use disorder. 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 Anxiety unspecified. Rule out PTSD. Alcohol use disorder moderate. Nicotine use disorder. Cluster B traits
--- NOTE | 2018-02-15 15:27 | BH.SGPN_ITS ---
Service Group Progress Note - Session Psychotherapy Session #2 Date Open:: 02/15/18 group members Time Started:: 10:13 Time Stopped:: 11:13 Targeted Problem #:: 1 Type of Group:: Illness Management Goal of Group:: The goal of group was to increase understanding of goals and goal setting and practice a method of goal setting. Client Response/Progress/Benefit:: Client responded well to session, active participant. Client appeared to connect with quote sharing it brings on cognitive dissonance as client shared belief she is too goal-oriented. Client was receptive to group feedback and stated she wants to focus on the purpose of her goals, not solely the accomplishment of getting things done. Client shared goals are important because they give a person purpose, direction, and motivation. Client reported connecting with the idea of not becoming too consumed with goals that she forgets to be present. Client provided good insight to the discussion of SMART goals and helped the group establish realistic goals during the activity. Client appeared to benefit from increasing awareness of the importance of goal setting. Progress noted in client's improved mood stability and awareness, but can continue to benefit from challenging unrealistic expectations. Eye Contact:: Good Motor Activity:: Appropriate Appearance:: Neat Speech:: Appropriate Mood:: Anxious Affect:: Constricted Thoughts:: Linear, No evidence of hallucinations/delusions noted Staff Interventions:: Therapist facilitated group discussion about goals and goal setting. Therapist taught group the acronym SMART (Specific, Measurable, Achievable, Realistic, Timely) as a tool to help with goal setting. Therapist led the group in an activity to be used as a method of practicing goal setting. Therapist provided the group with a small beach ball and explained their goal was to keep the ball in the air for as long as possible. Therapist guided the group through the SMART acronym as group was participating in activity. Psychotherapy Session #3 Date Open:: 02/15/18 group members Time Started:: 11:23 Time Stopped:: 12:18 Targeted Problem #:: 1 Type of Group:: Functional Skills Development Goal of Group:: The goal of group was to identify a goal for the week, explore the potential barriers to achieving that set goal, and identify strategies to overcome barriers. Client Response/Progress/Benefit:: Client responded well to session, active participant. Client reported the activity helped her realize she often has unrealistic expectations for herself when goal setting. Client identified her goal for the week as ?to tell myself 2 positive affirmations in the morning for 5 days before my coffee.? Client stated this goal would reduce her negative self -talk and improve self-esteem. Client identified her barriers as ?feeling awkward? as client is not used to using positive self-talk. Client identified solutions for this barrier such as ?just making myself try, what?s the worst that can happen.? Client reported group today helped her realize ?I need to do goals for me, not to just check things off a list.? Client appeared to benefit from identifying a goal for the week as well as problem-solving his barriers. Client progressing as shown by reduced anxiety and depression, but can continue to benefit from challenging negative thoughts. Eye Contact:: Good Motor Activity:: Appropriate Appearance:: Neat Speech:: Appropriate Mood:: Euthymic Affect:: Congruent Thoughts:: Linear, No evidence of hallucinations/delusions noted Staff Interventions:: Therapist explained goal setting activity to group. Therapist provided each group member with a piece of paper and asked them to write down a goal they would like to accomplish over the weekend. Therapist then asked each member to draw a path to their goal and identify barriers that could potentially get in the way of their goal. Therapist led group in processing their goal maps and had them come up with strategies to overcome the barriers. Therapist provided support by using reflective listening.
--- NOTE | 2018-02-15 15:31 | BH.SGPN ---
Service Group Progress Note - Session Psychotherapy Session #1 Date Open:: 02/15/18 Time Started:: 09:03 Time Stopped:: 10:01 Targeted Problem #:: 1 Type of Group:: Process - 7 participants Goal of Group:: The goal of group was to check-in on clients mood, stressors and positives, review homework and introduce the topic of the day. Client Response/Progress/Benefit:: Client attentive throughout and appeared to respond well to session. She discussed feeling somewhat stagnant on this date as it is beginning to sink in that this is her last week in the program. Client discussed experiencing some thoughts of is this it, indicating feeling as though she thought she would be able to make more progress and be back to her old self. Client benefitted from being challenged regarding wanting to go back to her old self if this ment returning to unhealthy behaviors previously used. 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 CLient displaying progress in ability to challenge negative thoughts and did well to reflect back upon the areas in which she has made progress as well as identify what goals she has moving forward. CLient recommended continued IOP to complete discharge planning and discuss coping skills, warning signs, and triggers to remain aware of following discharge from [facility] on thursday. Eye Contact:: Good Motor Activity:: Appropriate Appearance:: Casual Speech:: Appropriate Mood:: Anxious, Dysthymic Affect:: Congruent Thoughts:: Linear, Logical, No evidence of hallucinations/delusions noted Staff Interventions:: Therapist used open-ended questions to elicit information about client's current stressors and mood state. Therapist was supportive by using active listening and reflection. Therapist utilized a quote related to confidence as an aid in introducing the topic of the day and facilitated discussion of quote.
--- NOTE | 2018-02-15 15:54 | BH.SGPN_ITS ---
Service Group Progress Note - Session Psychotherapy Session #1 Date Open:: 02/15/18 Time Started:: 09:03 Time Stopped:: 10:01 Targeted Problem #:: 1 Type of Group:: Process - 7 participants Goal of Group:: The goal of group was to check-in on client?s mood, stressors and positives, review homework and introduce the topic of the day. Client Response/Progress/Benefit:: Client attentive throughout and appeared to respond well to session. She discussed feeling somewhat stagnant on this date as it is beginning to sink in that this is her last week in the program. Client discussed experiencing some thoughts of is this it, indicating feeling as though she thought she would be able to make more progress and be back to her old self. Client benefitted from being challenged regarding wanting to go back to her old self if this ment returning to unhealthy behaviors previously used. 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 CLient displaying progress in ability to challenge negative thoughts and did well to reflect back upon the areas in which she has made progress as well as identify what goals she has moving forward. CLient recommended continued [facility] to complete discharge planning and discuss coping skills, warning signs, and triggers to remain aware of following discharge from [facility] on thursday. Eye Contact:: Good Motor Activity:: Appropriate Appearance:: Casual Speech:: Appropriate Mood:: Anxious, Dysthymic Affect:: Congruent Thoughts:: Linear, Logical, No evidence of hallucinations/delusions noted Staff Interventions:: Therapist used open-ended questions to elicit information about client's current stressors and mood state. Therapist was supportive by using active listening and reflection. Therapist utilized a quote related to confidence as an aid in introducing the topic of the day and facilitated discussion of quote.
--- NOTE | 2018-02-18 15:47 | BH.DS ---
Discharge Summary - Demographics Date of Admission:: 01/18/18 Discharge Date: 02/19/18 Presenting Problems at Admission:: Client is a 52 year old female with a history of Major Depressive Disorder, Unspecified Anxiety, and Alcohol Use Disorder. She has previously completed the [facility] level of care program and was stepped down to [facility] care on 01/15/17. Client initially referred to Behavioral Health [facility] following what Client describes as I had a break in which she had a panic attack and had to leave work on 01/06. This was followed by referral by outpatient psychiatrist. At time of admission, CLient reports increased anxiety and intrusive thoughts related to occupational burnout. Client reported sx at time of intake include increased anxiety and overwhelming stress due to occupational stressors, increased guilt and avoidance, intrusive thoughts resulting in regular daily panic attacks, increased alcohol use as a primary coping mechanism, decreased concentration and focus, and increased psychosocial stressors resulting in inability to function at baseline. Client referred to [facility] level of care to further improve and build upon healthy skills acquired, as well as continue to work on maintaining sobriety and improving overall symptoms of anxiety and depression. 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 Anxiety unspecified. Rule out PTSD. Alcohol use disorder moderate. Nicotine use disorder. Cluster B traits Reason for Discharge:: Client has made significant progress towards treatment goals and reports decrease in symptoms of depression and anxiety. She no longer meets criteria for [facility] level of care. Additionally, Client has maintained sobriety throughout the duration of program admission. - Treatment Progress During Treatment & Response: Client continued to make progress will in [facility] program and appeared to respond well to treatment throughout duration of admission. This is evidenced by Client consistent attendance, participation in group and individual discussions, willingness to complete assigned homework, engagement with peers, and increase in consistency of implementation of healthy coping skills. Client has successfully been able to maintain sobriety throughout duration or treatment as well as reduce tobacco use. Client indicates managing urges to engage in unhealthy coping by utilizing her supports, finding healthy distractions, and challenging negative or distorted thinking patterns. CLient reports improved mood, energy levels, and increased ability to complete daily tasks. She is beginning to establish a new healthy routine to replace previous toxic behaviors and appears to be making several positive strides towards implementing a healthier lifestyle. CLient indicates increased levels of self-esteem and confident and reports consistent use of skills learned as well as active communication with supports. Issues Still to be Addressed:: Client has demonstrated significant progress with reducing mental health sx, but can continue to benefit from ongoing CBT work challenging cognitive distortions and self-doubt. Client did well to utilize reframing techniques to challenge and replace negative thoughts, however there is a concern post discharge that client will forget to utilize internal thought challenging coping skills as she often struggles with dichotomous thinking. Client can continue to benefit from ongoing focus on recognizing and managing warning signs/triggers related to anxiety and compassion fatigue so as to prevent Client from relapse of unhealthy coping. Additionally, reinforcement of healthy coping skills learned in IOP, daily goal setting, and strategies to continue challenging distorted thinking or unrealistic expectations. Client recommended seeking out additional social support for substance use behaviors. Discharge Recommendations/Instructions:: Client recommended to follow up with her outpatient providers at [facility] for outpatient counseling and psychiatry. Client has an appointment with her outpatient therapist on Thursday, March 01 and just had an appointment with Dr. Porras 02/18/18 with follow-up scheduled for next month. Client also recommended to follow up with volunteering at a local [employer] and attending DBT support group at [facility]. Client recommended seeking out additional social support to continue to promote sobriety. Discharge Handout: Complete Discharge Handout with client on aftercare options and continuity of care.
--- NOTE | 2018-02-18 17:46 | BH.DS_ITS ---
Discharge Summary - Demographics Date of Admission:: 01/18/18 Discharge Date: 02/19/18 Presenting Problems at Admission:: Client is a 52 year old female with a history of Major Depressive Disorder, Unspecified Anxiety, and Alcohol Use Disorder. She has previously completed the [facility] level of care program and was stepped down to [facility] care on 01/15/17. Client initially referred to Behavioral Health [facility] following what Client describes as I had a break in which she had a panic attack and had to leave work on 01/06. This was followed by referral by outpatient psychiatrist. At time of admission, CLient reports increased anxiety and intrusive thoughts related to occupational burnout. Client reported sx at time of intake include increased anxiety and overwhelming stress due to occupational stressors, increased guilt and avoidance, intrusive thoughts resulting in regular daily panic attacks, increased alcohol use as a primary coping mechanism, decreased concentration and focus, and increased psychosocial stressors resulting in inability to function at baseline. Client referred to [facility] level of care to further improve and build upon healthy skills acquired, as well as continue to work on maintaining sobriety and improving overall symptoms of anxiety and depression. 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 Anxiety unspecified. Rule out PTSD. Alcohol use disorder moderate. Nicotine use disorder. Cluster B traits Reason for Discharge:: Client has made significant progress towards treatment goals and reports decrease in symptoms of depression and anxiety. She no longer meets criteria for [facility] level of care. Additionally, Client has maintained sobriety throughout the duration of program admission. - Treatment Progress During Treatment & Response: Client continued to make progress will in [facility] program and appeared to respond well to treatment throughout duration of admission. This is evidenced by Client consistent attendance, participation in group and individual discussions, willingness to complete assigned homework, engagement with peers, and increase in consistency of implementation of healthy coping skills. Client has successfully been able to maintain sobriety throughout duration or treatment as well as reduce tobacco use. Client indicates managing urges to engage in unhealthy coping by utilizing her supports , finding healthy distractions, and challenging negative or distorted thinking patterns. CLient reports improved mood, energy levels, and increased ability to complete daily tasks. She is beginning to establish a new healthy routine to replace previous toxic behaviors and appears to be making several positive strides towards implementing a healthier lifestyle. CLient indicates increased levels of self-esteem and confident and reports consistent use of skills learned as well as active communication with supports. Issues Still to be Addressed:: Client has demonstrated significant progress with reducing mental health sx, but can continue to benefit from ongoing CBT work challenging cognitive distortions and self-doubt. Client did well to utilize reframing techniques to challenge and replace negative thoughts, however there is a concern post discharge that client will forget to utilize internal thought challenging coping skills as she often struggles with dichotomous thinking. Client can continue to benefit from ongoing focus on recognizing and managing warning signs/triggers related to anxiety and compassion fatigue so as to prevent Client from relapse of unhealthy coping. Additionally, reinforcement of healthy coping skills learned in IOP, daily goal setting, and strategies to continue challenging distorted thinking or unrealistic expectations. Client recommended seeking out additional social support for substance use behaviors. Discharge Recommendations/Instructions:: Client recommended to follow up with her outpatient providers at [facility] for outpatient counseling and psychiatry. Client has an appointment with her outpatient therapist on Thursday, March 01 and just had an appointment with Dr. Porras with follow-up scheduled for next month. Client also recommended to follow up with volunteering at a local [employer] and attending DBT support group at [facility]. Client recommended seeking out additional social support to continue to promote sobriety. Discharge Handout: Complete Discharge Handout with client on aftercare options and continuity of care.
--- NOTE | 2018-02-18 17:46 | BH.AFTERPLAN ---
Aftercare Plan - Demographics Treatment End Date:: 02/19/18 Psychiatrist:: Elizabeth Lanier Psychiatrist Office #:: [phone] [facility]/IOP Therapist:: Diana Little Therapist Phone #:: [phone] - Medications Home Medications: Home Medications Cholecalciferol (Vitamin D3) [Vitamin D3] 4,000 unit PO DAILY 01/06/18 Duloxetine Hcl [Cymbalta] 60 mg PO DAILY 01/06/18 Propranolol HCl [Inderal (Beta Danay)] 10 mg PO BID 01/06/18 busPIRone [Buspar] 15 mg PO BID 01/06/18 Acamprosate Calcium 666 mg PO TID 01/08/18 - Plan Details Progress/Aftercare Plan Details:: Client continued to make progress while in IOP program and appeared to respond well to treatment throughout duration of admission. This is evidenced by Client consistent attendance, participation in group and individual discussions, willingness to complete assigned homework, engagement with peers, and increase in consistency of implementation of healthy coping skills. Client has successfully been able to maintain sobriety throughout duration or treatment as well as reduce tobacco use. Client indicates managing urges to engage in unhealthy coping by utilizing her supports, finding healthy distractions, and challenging negative or distorted thinking patterns. CLient reports improved mood, energy levels, and increased ability to complete daily tasks. She is beginning to establish a new healthy routine to replace previous toxic behaviors and appears to be making several positive strides towards implementing a healthier lifestyle. CLient indicates increased levels of self-esteem and confident and reports consistent use of skills learned as well as active communication with supports. - Appointments Appointments/Referrals to Other Services:: Client recommended to follow up with her outpatient providers at [facility] for outpatient counseling and psychiatry. Client has an appointment with her outpatient therapist and an appointment with Dr. Vern nicholson . Client also recommended to follow up with volunteering at a local [employer] and attending DBT support group at [facility]. Client recommended seeking out additional social support to continue to promote sobriety.
--- NOTE | 2018-02-19 10:43 | BH.SGPN ---
Service Group Progress Note - Session Psychotherapy Session #1 Date Open:: 18 - 7 group members Time Started:: 09:05 Time Stopped:: 10:10 Targeted Problem #:: 1 Type of Group:: Process Goal of Group:: The goal of today's group was to check-in with clients and review homework from previous group session. Client Response/Progress/Benefit:: Client responded well to session, providing insight to group on her last day. Client reports feeling all kinds of mixed emotions today... happy/sad, strong/weak, anxious/excited as today is client's last day in IOP. Client shared she is mostly nervous about having free time and not knowing where this new road will take her. Client identified strategies that will help her maintain the progress she has made in group such as challenging negative thoughts, practicing her coping skills, staying busy, and following through with outpatient therapy. Client was receptive to positive statements made by peers on client's progress and client stated, you get out of the program what you put in. Client appeared to benefit from reflecting on her progress and receiving support from peers. Progress noted in client's improved mood and reduced symptoms. Eye Contact:: Fair Motor Activity:: Appropriate Appearance:: Neat Speech:: Appropriate Mood:: Anxious Affect:: Constricted Thoughts:: Linear, No evidence of hallucinations/delusions noted Staff Interventions:: Therapist inquired about each group member?s previous night and current mood state. Therapist reviewed the group member?s homework from previous group session with the group, asking open ended questions to get more information.
--- NOTE | 2018-02-19 15:14 | BH.MDN ---
Multi-Disciplinary Note - Note 30-min Individual Time Started:: 12:30 Date: 02/19/18 Purpose of session/treatment goals addressed:: Purpose of this session was to reflect upon progress in program as today was client's last day in IOP program and status on treatment plan goals. Another purpose was to review with Client potential warning signs and barriers, as well as strategies for maintaining gains post discharge. Discussed Client aftercare plan and recommendations. Eye Contact:: Good Motor Activity:: Appropriate Appearance:: Casual Speech:: Appropriate Mood:: Euthymic, Anxious Affect:: Congruent Thoughts:: Linear, Logical, No evidence of hallucinations/delusions noted Staff Interventions:: Therapist asked open-ended questions and used reflective listening to review Client progress throughout program. Worked with Client to identify potential warning signs and barriers to managing mental health symptoms post-discharge. Provided client with supportive feedback and encouragement, as well as utilized strengths-based perspective to identify strategies for maintaining gains made. Discussed aftercare plan and recommendations. Client Response:: Client receptive of meeting with this therapist to review progress in IOP and finalize aftercare plans. Client remained well engaged throughout. She discussed areas in which she has seen progress and indicated that since beginning iop program client has noticed decreased levels of anxiety and depression. More specifically, client indicated an increase in her ability to communicate needs with supports and challenge negative thoughts in order to better manage stressors. She shared continued sobriety since beginning the program and discussed beliefs that by maintaining sobriety she has been able to prove to herself how strong she is and rediscover the things she enjoys about living, rather than numbing herself to everything with alcohol. Client discussed improved relationships with supports and increased use of healthy coping skills. She additionally shared some concern regarding wishing she had been able to make more progress in treatment but appeared to connect with the conversation regarding progress as a process that is often gradual. Client and therapist reviewed potential barriers to maintaining progress and warning signs to look out for. Client discussed that isolating or avoiding her daughters phone calls would be a big warning she is not doing well. She shared some recent urges to relapse with gambling behavior however successfully refrained from doing so with the support of her and reminding herself of how far she has come and what the consequences would be. Client reviewed with this therapist the aftercare plan and strategies to continue to maintain gains. Client is attending outpatient therapy on a weekly individual basis as well as psychiatry services. Client additionally is engaged in a DBT group through [facility]. Risks/Concerns:: No risks or concerns noted. Denies any suicidal ideations, plan, or intent as of 02/19/18. Progress Toward Goals/Plan:: Client has made notable progress while in IOP program and responded well to treatment throughout duration of admission. This is evidenced by Client consistent attendance, participation in group and individual discussions, willingness to complete assigned homework, engagement with peers, and active implementation of healthy coping skills. Client indicates that she had successfully been able to maintain sobriety throughout duration or treatment as well as reduce tobacco use. She reports some difficulty with urges to altman however is managing urges by utilizing her supports, reminding self of consequences, finding healthy distractions, and challenging negative or distorted thinking patterns. Client reports some struggles in maintaining positive mood but finds implementing a regular routine to aide with improving mood. She appears to be making several positive strides towards implementing a healthier lifestyle. Client indicates increased levels of self-esteem and confident and reports consistent use of skills learned as well as active communication with supports. Time Stopped:: 12:57
--- NOTE | 2018-02-19 15:46 | BH.MDN_ITS ---
Multi-Disciplinary Note - Note 30-min Individual Time Started:: 12:30 Date: 02/19/18 Purpose of session/treatment goals addressed:: Purpose of this session was to reflect upon progress in program as today was client's last day in IOP program and status on treatment plan goals. Another purpose was to review with Client potential warning signs and barriers, as well as strategies for maintaining gains post discharge. Discussed Client aftercare plan and recommendations. Eye Contact:: Good Motor Activity:: Appropriate Appearance:: Casual Speech:: Appropriate Mood:: Euthymic, Anxious Affect:: Congruent Thoughts:: Linear, Logical, No evidence of hallucinations/delusions noted Staff Interventions:: Therapist asked open-ended questions and used reflective listening to review Client progress throughout program. Worked with Client to identify potential warning signs and barriers to managing mental health symptoms post-discharge. Provided client with supportive feedback and encouragement, as well as utilized strengths-based perspective to identify strategies for maintaining gains made. Discussed aftercare plan and recommendations. Client Response:: Client receptive of meeting with this therapist to review progress in IOP and finalize aftercare plans. Client remained well engaged throughout. She discussed areas in which she has seen progress and indicated that since beginning iop program client has noticed decreased levels of anxiety and depression. More specifically, client indicated an increase in her ability to communicate needs with supports and challenge negative thoughts in order to better manage stressors. She shared continued sobriety since beginning the program and discussed beliefs that by maintaining sobriety she has been able to prove to herself how strong she is and rediscover the things she enjoys about living, rather than numbing herself to everything with alcohol. Client discussed improved relationships with supports and increased use of healthy coping skills. She additionally shared some concern regarding wishing she had been able to make more progress in treatment but appeared to connect with the conversation regarding progress as a process that is often gradual. Client and therapist reviewed potential barriers to maintaining progress and warning signs to look out for. Client discussed that isolating or avoiding her daughter?s phone calls would be a big warning she is not doing well. She shared some recent urges to relapse with gambling behavior however successfully refrained from doing so with the support of her and reminding herself of how far she has come and what the consequences would be. Client reviewed with this therapist the aftercare plan and strategies to continue to maintain gains. Client is attending outpatient therapy on a weekly individual basis as well as psychiatry services. Client additionally is engaged in a DBT group through [facility]. Risks/Concerns:: No risks or concerns noted. Denies any suicidal ideations, plan , or intent as of 02/19/18. Progress Toward Goals/Plan:: Client has made notable progress while in IOP program and responded well to treatment throughout duration of admission. This is evidenced by Client consistent attendance, participation in group and individual discussions, willingness to complete assigned homework, engagement with peers, and active implementation of healthy coping skills. Client indicates that she had successfully been able to maintain sobriety throughout duration or treatment as well as reduce tobacco use. She reports some difficulty with urges to altman however is managing urges by utilizing her supports, reminding self of consequences, finding healthy distractions, and challenging negative or distorted thinking patterns. Client reports some struggles in maintaining positive mood but finds implementing a regular routine to aide with improving mood. She appears to be making several positive strides towards implementing a healthier lifestyle. Client indicates increased levels of self-esteem and confident and reports consistent use of skills learned as well as active communication with supports. Time Stopped:: 12:57
--- NOTE | 2018-03-29 13:05 | BH.SGPN_ITS ---
Service Group Progress Note - Session Psychotherapy Session #2 Date Open:: 02/01/18 Time Started:: 10:25 Time Stopped:: 11:15 Targeted Problem #:: 1 Type of Group:: Illness Management Goal of Group:: To increase understanding how positive and negative forces in life can impact balance in life. Client Response/Progress/Benefit:: Client actively engaged throughout group contributing to session and listened attentively to others. Client related to quote that sometimes she wishes she could just wake up and everything would be better, but recognizes if she wants things to change for the better she has to put forth the work and effort. When processing activity client identified it's important to be open to others ideas that could help with current stressor or situation. Client reported it's also important to not give up and to use positive supports to help with moving forward. Client seemed to benefit from identifying what could help her maintain balance of negative and positive forces. Client could benefit from continued focus on strategies to help maintain current progress. Eye Contact:: Good Motor Activity:: Appropriate Appearance:: Neat Speech:: Appropriate Mood:: Euthymic Affect:: Congruent Thoughts:: Linear, Logical, No evidence of hallucinations/delusions noted Staff Interventions:: Therapist facilitated group discussion about the various forces of life and helped clients connect the impact they have on balance in life. Therapist led group in an experiential activity in which group members had to work together to balance an object and move it to a designated location. Therapist utilized the activity as a tool to process the challenges connected with balancing various forces. Psychotherapy Session #3 Date Open:: 02/01/18 Time Started:: 11:25 Time Stopped:: 12:15 Targeted Problem #:: 1 Type of Group:: Functional Skills Development Goal of Group:: To identify positive and negative forces in life and identify which forces are helping stability and which forces are contributing to instability. Client Response/Progress/Benefit:: Client responded well to session AEB client connecting with others and sharing her thoughts and ideas. Client identified her positive forces to include: family, IOP, healthy coping skills, setting SMART goals, spirituality, and positive talk. 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 Client reported she currently feels she has improved balance between her positive and negative forces but does not feel stable enough to handle many hardships or stressors. Client identify fear failure to be 1 of the stronger negative forces that can hold her back from trying new things or making progress. Client reported positive self talk to be 1 of her most impactful positive forces that help her decrease her negative thought patterns in challenge distortions. Client showing progress as evidenced by increased awareness into what can help her move forward. Client seemed to benefit from increased awareness of her positive forces as well as starting to think about what she can do to improve her stability. Eye Contact:: Good Motor Activity:: Appropriate Appearance:: Neat Speech:: Appropriate Mood:: Euthymic Affect:: Congruent Thoughts:: Linear, Logical, No evidence of hallucinations/delusions noted Staff Interventions:: Therapist provided group with an example of a scenario of a person and the individual???s positive and negative forces. Therapist provided each group member with a worksheet in which they were to identify five positive and five negative forces in their life. Therapist processed the activity with the group, helping others connect the impact certain forces have on their life balance.
--- NOTE | 2018-06-09 23:22 | BH.IGGP_ITS ---
Aftercare Plan - Demographics Treatment End Date:: 02/19/18 Psychiatrist:: Elizabeth Lanier Psychiatrist Office #:: [phone] [facility]/I[facility] Therapist:: Diana Little Therapist Phone #:: [phone] - Medications Home Medications: Home Medications Cholecalciferol (Vitamin D3) [Vitamin D3] 4,000 unit PO DAILY 01/06/18 Duloxetine Hcl [Cymbalta] 60 mg PO DAILY 01/06/18 Propranolol HCl [Inderal (Beta Danay)] 10 mg PO BID 01/06/18 busPIRone [Buspar] 15 mg PO BID 01/06/18 Acamprosate Calcium 666 mg PO TID 01/08/18 - Plan Details Progress/Aftercare Plan Details:: Client continued to make progress while in [facility] program and appeared to respond well to treatment throughout duration of admission. This is evidenced by Client consistent attendance, participation in group and individual discussions, willingness to complete assigned homework, engagement with peers, and increase in consistency of implementation of healthy coping skills. Client has successfully been able to maintain sobriety throughout duration or treatment as well as reduce tobacco use. Client indicates managing urges to engage in unhealthy coping by utilizing her supports , finding healthy distractions, and challenging negative or distorted thinking patterns. CLient reports improved mood, energy levels, and increased ability to complete daily tasks. She is beginning to establish a new healthy routine to replace previous toxic behaviors and appears to be making several positive strides towards implementing a healthier lifestyle. CLient indicates increased levels of self-esteem and confident and reports consistent use of skills learned as well as active communication with supports. - Appointments Appointments/Referrals to Other Services:: Client recommended to follow up with her outpatient providers at [facility] for outpatient counseling and psychiatry. Client has an appointment with her outpatient therapist and an appointment with Dr. Vern nicholson . Client also recommended to follow up with volunteering at a local [employer] and attending DBT support group at [facility]. Client recommended seeking out additional social support to continue to promote sobriety.
== END 2018-02-19 14:00 | disposition home or self-care (01) ==
LOC: BHIOP 09:00
PROVIDERS: Visit Provider Psychiatry & Neurology Psychiatry
DX: F33.2 Major depressive disorder, recurrent severe without psychotic features (principal); F41.9 Anxiety disorder, unspecified
CPT/HCPCS: H0035; 90832; 90853